=== PATIENT | female | born 1985 | race Caucasian/White ===

== ENCOUNTER 2019-05-24 14:28 | Outpatient (REF) | payer MEDICAID, SELFPAY ==
[2019-05-24 17:22] LABS: *AMPHETAMINES SCREEN URINE Negative (Negative); *BARBITURATES SCREEN URINE Negative (Negative); *BENZODIAZEPINES SCREEN URINE Negative (Negative); Cannabinoids THC Negative (Negative); Cocaine Screen,Urine Negative (Negative); METHADONE URINE SCREEN Negative (Negative); OPIATES URINE SCREEN Negative (Negative); Tricyclic Antidepressants Negative (Negative)
[2019-05-29 02:19] LABS: Buprenorphine Negative; Norbuprenorphine Negative
== END 2019-05-24 14:48 ==
LOC: LBN 14:28
PROVIDERS: Visit Provider Advanced Practice Midwife
DX: Z34.91 Encounter for supervision of normal pregnancy, unspecified, first trimester (principal)
CPT/HCPCS: 80307; 87086

== ENCOUNTER 2019-06-07 13:33 | Outpatient (CLI) | payer MEDICAID, SELFPAY ==
[2019-06-07 14:09] LABS: Kit/Specimen SENT
[2019-06-07 14:53] LABS: TSH (W/Ref FT4) 1.31 uIU/mL (0.358-3.74)
[2019-06-08 15:20] LABS: Varicella IgG Antibody Positive
[2019-06-08 16:46] LABS: Syphilis Total Ab w/Reflex Nonreactive (Nonreactive)
[2019-06-11 12:58] LABS: Specimen WB Whole Blood
== END 2019-06-07 13:53 ==
PROVIDERS: Visit Provider Advanced Practice Midwife
DX: Z34.91 Encounter for supervision of normal pregnancy, unspecified, first trimester (principal); Z36.89 Encounter for other specified antenatal screening
CPT/HCPCS: 36415; 81329; 86787; 81220; 84443; 86780

== ENCOUNTER 2019-06-22 00:25 | Outpatient (CLI) | payer MEDICAID, SELFPAY ==
--- NOTE | 2019-06-22 10:23 | MERGE_ITS ---
*[facility]* *[facility]* [address] [place] [address] Date of study: 06/22/2019 Transthoracic Echocardiography M-mode, complete 2D, complete spectral Doppler, and color Doppler *STUDY CONCLUSIONS* Summary: 1. Left ventricle: The cavity size was normal. Wall thickness was normal. Systolic function was normal. The estimated ejection fraction was 55-60%. Wall motion was normal; there were no regional wall motion abnormalities. 2. Right ventricle: The cavity size was normal. Systolic function was normal. 3. Inferior vena cava: The vessel was patent and normal in size. The respirophasic diameter changes were blunted (less than 50%). *PATIENT PRESENTATION* Height: 157.5cm (62in ) S/D Pressure: 92 / 59 Weight: 57.6kg (126.7lb ) BSA: 1.59m^2 Test start time: 10:30 AM. Test stop time: 11:30 AM. PERFORMING Unknown PERFORMING [facility] [address] BOSS Alejandra Cesar RT (Wilfred)(CT), RDCS CONSULTING Ana Resendiz ORDERING Ana Resendiz REFERRING Ana Resendiz *PROCEDURE DATA* Procedure information: The patient was identified by two identifiers. This study was interpreted by [facility]. Pertinent images and digital data are archived for permanent storage and are available for subsequent review. No prior study was available for comparison. Study status: Routine. Transthoracic echocardiography. M-mode, complete 2D, complete spectral Doppler, and color Doppler. A Transthoracic Echocardiogram was performed. Scanning was performed from the parasternal, apical, subcostal, and suprasternal notch acoustic windows. Images were obtained using an [id number] cardiac ultrasound machine. Image quality was adequate. Study completion: The patient tolerated the procedure well. There were no complications. History: PMH: Heart murmur audible, hx of palpitations z34.90. *CARDIAC ANATOMY* Left ventricle: The cavity size was normal. Wall thickness was normal. Systolic function was normal. The estimated ejection fraction was 55-60%. Wall motion was normal; there were no regional wall motion abnormalities. Diastolic parameters were normal. There was no evidence of elevated ventricular filling pressure by Doppler parameters. Aortic valve: Trileaflet; normal thickness leaflets. Mobility was not restricted. Doppler: Transvalvular velocity was within the normal range. There was no stenosis. There was no significant regurgitation. VTI ratio of LVOT to aortic valve: 0.79. Valve area (VTI): 1.9cm^2. Indexed valve area (VTI): 1.2cm^2/m^2. Peak velocity ratio of LVOT to aortic valve: 0.8. Valve area (Vmax): 1.9cm^2. Indexed valve area (Vmax): 1.2cm^2/m^2. Mean velocity ratio of LVOT to aortic valve: 0.81. Valve area (Vmean): 1.9cm^2. Indexed valve area (Vmean): 1.2cm^2/m^2. Mean gradient (S): 3.7mm Hg. Peak gradient (S): 6.1mm Hg. Aorta: Aortic root: The aortic root was normal in size. Ascending aorta: The ascending aorta was normal in size. Mitral valve: Structurally normal valve. Mobility was not restricted. Doppler: Transvalvular velocity was within the normal range. There was no evidence for stenosis. There was trivial regurgitation. Valve area by pressure half-time: 4.6cm^2. Indexed valve area by pressure half-time: 2.9cm^2/m^2. Peak gradient (D): 3.2mm Hg. Left atrium: The atrium was normal in size. Right ventricle: The cavity size was normal. Systolic function was normal. Pulmonic valve: The pulmonary valve appears to be grossly normal. Doppler: Transvalvular velocity was within the normal range. There was no evidence for stenosis. There was trivial regurgitation. Tricuspid valve: Structurally normal valve. Doppler: Transvalvular velocity was within the normal range. There was no evidence for stenosis. There was mild regurgitation. Pulmonary artery: Poorly visualized. Pulmonary systolic pressure was within the normal range, in the range of 20mm Hg to 25mm Hg. Right atrium: The atrium was normal in size. Pericardium: There was no pericardial effusion. Systemic veins: Inferior vena cava: Well visualized. The vessel was patent and normal in size. The respirophasic diameter changes were blunted (less than 50%). Baseline ECG: Normal sinus rhythm. Measurements Left ventricle Value Reference LV end-diastolic volume, 1-p A2C 70 ml LV ejection fraction, 1-p A2C 60 % LV end-diastolic volume, 1-p A4C 74 ml LV e', lateral 0.211 m/sec LV E/e', lateral 4 LV e', medial 0.158 m/sec LV E/e', medial 6 LV e', average 0.185 m/sec LV E/e', average 5 LVOT Value Reference LVOT ID, A-P 1.7 cm LVOT area 2.3 cm^2 LVOT peak velocity, S 0.99 m/sec LVOT mean velocity, S 0.74 m/sec LVOT VTI, S 22.2 cm LVOT peak gradient, S 3.9 mm Hg LVOT mean gradient, S 2.4 mm Hg Stroke volume (SV), LVOT DP 52 ml Stroke index (SV/bsa), LVOT DP 33 ml/m^2 Aortic valve Value Reference Aortic valve peak velocity, S 1.2 m/sec Aortic valve mean velocity, S 0.9 m/sec Aortic valve VTI, S 28.0 cm Aortic mean gradient, S 3.7 mm Hg Aortic peak gradient, S 6.1 mm Hg VTI ratio, LVOT/AV 0.79 Aortic valve area, VTI 1.9 cm^2 Velocity ratio, peak, LVOT/AV 0.8 Aortic valve area, peak velocity 1.9 cm^2 Velocity ratio, mean, LVOT/AV 0.81 Aortic valve area, mean velocity 1.9 cm^2 Aortic valve area/bsa, mean velocity 1.2 cm^2/m^2 Aorta Value Reference Aortic root ID, ED 2.4 cm Ascending aorta ID, A-P, S 2.3 cm Left atrium Value Reference LA ID, A-P, ES 2.2 cm LA ID/bsa, A-P 1.4 cm/m^2 <=2.2 LA volume/bsa, ES, 1-p A4C 17 ml/m^2 LA volume, ES, 2-p 26 ml LA volume/bsa, ES, 2-p 17 ml/m^2 LA/aortic root ratio 0.94 Mitral valve Value Reference Mitral E-wave peak velocity 0.9 m/sec Mitral A-wave peak velocity 0.39 m/sec Mitral deceleration time 166 ms 150 - 230 Mitral pressure half-time 48 ms Mitral peak gradient, D 3.2 mm Hg Mitral E/A ratio, peak 2.33 Mitral valve area, PHT, DP 4.6 cm^2 Pulmonary veins Value Reference Pulmonary vein peak velocity, S 0.4 m/sec Pulmonary vein peak velocity, D 0.65 m/sec Pulmonary vein velocity ratio, peak, 0.6 S/D Pulmonary vein A-wave reversal peak 0.22 m/sec velocity Tricuspid valve Value Reference Tricuspid regurg peak velocity 2.4 m/sec Tricuspid peak RV-RA gradient 22.3 mm Hg Right atrium Value Reference RA area, ES, A4C 12.1 cm^2 8.3 - 19.5 Pulmonic valve Value Reference Pulmonic regurg velocity, ED 0.64 m/sec Legend: (L) and (H) orion values outside specified reference range. I have personally reviewed the images and have reviewed and edited the reported findings. Electronically signed by Azeem Navarrete 06/22/2019 12:44
== END 2019-06-22 00:45 ==
PROVIDERS: PCP Family Medicine; Visit Provider Advanced Practice Midwife
DX: R01.1 Cardiac murmur, unspecified (principal); R00.2 Palpitations; Z3A.13 13 weeks gestation of pregnancy
CPT/HCPCS: 93306

== ENCOUNTER 2019-07-24 01:11 | Outpatient (CLI) | payer MEDICAID, SELFPAY ==
--- NOTE | 2019-07-24 13:52 | DI.US_ITS ---
SYMPTOM/DIAGNOSIS: Z34.90 OB ULTRASOUND: The fetus is in variable position during the exam. The placenta is anterior. The biometric measurements correspond to 18 weeks 6 days and an EDC 19 December 2019. The amniotic fluid is visually normal. No abnormalities are identified. IMPRESSION: survey is within normal limits. Predicted Gestational Age: Indication/History: survey 17 +5 Wks Range: 16 +5 to 18 +5 Prior US done on: Determined by: First US LMP History EDC by prior US: 12/27/2019 For multiple gestations: Baby PLACENTA: Grade: 0 Location: XX Anterior PRESENTATION: RT LT LOW LYING PREVIA Cephalic Trans (Head RT LT ) Varied XX Breech BIOMETRY: Anatomy Identified: BPD: 42 mm 18 +6 wks 4 chamber Heart XX Heart Rate 143 BPM HC: 159 mm 18 +5 wks LVOT XX Post Fossa XX AC: 132 mm 18 +5 wks RVOT XX Ventricles XX FL: 29 mm 18 +6 wks Stomach XX Nose XX Bladder XX Lips XX Cisterna Magna: 3.2 mm 82 CI: Kidneys XX Palate XX Cerebellum: 1.85 cm 3 vessel cord XX Spine XX EFW: 256 grms 96 % Cord Insertion XX NS= not seen Composite Age (US) 18 +6 wks Many abnormalities cannot be diagnosed. A normal exam does not exclude congenital abnormality. EDC by US 12/19/2019 Amniotic Fluid Index: Normal COMMENTS: RUQ: LUQ: RLQ: LLQ: Total: cm Biophysical Profile: Score 0/2 HERMELINDO (>2cm) Respirations (>30 sec) Body flexion/extension Extremity flexion/extension TOTAL SCORE
== END 2019-07-24 01:31 ==
PROVIDERS: PCP Family Medicine; Visit Provider Advanced Practice Midwife
DX: Z34.92 Encounter for supervision of normal pregnancy, unspecified, second trimester (principal)
CPT/HCPCS: 76805

== ENCOUNTER 2019-08-16 10:51 | Outpatient (CLI) | payer MEDICAID, SELFPAY ==
[2019-08-16 12:55] LABS: HCT 37.7 % (36.0-46.0); HGB 12.6 g/dL (12.0-15.5); Mean Corp. HGB Concentration 33.4 g/dL (32.0-36.0); Mean Corpuscular Hemoglobin 31.6 pg (27.0-33.0); Mean Corpuscular Volume 94.5 fL (80-95); Mean Platelet Volume 10.5 fL (8.0-11.0); Platelet Count 260 x1000/uL (130-400); RBC 3.99 m/cumm (4.00-5.20); RBC Distribution Width 14.1 % (11.7-14.6); White Blood Cell Count 10.14 k/cumm (4.4-10.8)
== END 2019-08-16 11:11 ==
PROVIDERS: PCP Family Medicine; Visit Provider Advanced Practice Midwife
DX: Z34.92 Encounter for supervision of normal pregnancy, unspecified, second trimester (principal)
CPT/HCPCS: 36415; 85027; 86850; 86900; 86901; 87491; 87591

== ENCOUNTER 2019-09-05 19:49 | Observation (INO) | payer MEDICAID, SELFPAY ==
[2019-09-05 21:45] LABS: Bilirubin Negative (Negative); Blood Negative (Negative); Clarity Clear (Clear); Glucose Negative (Negative); Ketones Negative (Negative); Leukocyte Esterase Trace (Negative); Nitrite Negative (Negative); Urobilinogen 0.2 EU/dL (Up TO 0.2)
[2019-09-05 22:01] LABS: C & S Indicated? C&S Done As Ordered
[2019-09-05 22:16] LABS: Bacteria Few HPF (Negative); Casts Negative LPF (Negative); Crystals Negative HPF (Negative); Epithelial Cells Moderate HPF (Negative); Mucus Negative (Negative); RBC Negative (0-2); WBC Negative HPF (0-5)
== END 2019-09-05 22:45 | disposition home or self-care (01) ==
PROVIDERS: Admitting Provider Advanced Practice Midwife; PCP Family Medicine; Visit Provider Advanced Practice Midwife
DX: O60.02 Preterm labor without delivery, second trimester (principal); Z3A.23 23 weeks gestation of pregnancy
CPT/HCPCS: 81003; 81015; 87086; G0378

== ENCOUNTER 2019-09-06 12:42 | Outpatient (CLI) | payer MEDICAID, SELFPAY ==
--- NOTE | 2019-09-06 12:51 | DI.US_ITS ---
EXAM: US OB CERVICAL LENGTH CLINICAL HISTORY: contractions, Z34.90. TECHNIQUE: Limited examination was performed. COMPARISON: US OB 2-3 trimester from 07/24/2019 FINDINGS: Cephalic gonzalez is demonstrated. The placenta is anterior and grade 1. Cervical length is 5 cm. cardiac rate is 169 beats per minute.
== END 2019-09-06 13:02 ==
PROVIDERS: PCP Family Medicine; Visit Provider Advanced Practice Midwife
DX: Z34.92 Encounter for supervision of normal pregnancy, unspecified, second trimester (principal)
CPT/HCPCS: 76815; 82731; 87086

== ENCOUNTER 2019-09-06 16:56 | Outpatient (REF) | payer MEDICAID, SELFPAY ==
[2019-09-06 17:10] LABS: Fetal Fibronectin Negative (Negative)
== END 2019-09-06 17:16 ==
LOC: LBN 16:56
PROVIDERS: PCP Family Medicine; Visit Provider Advanced Practice Midwife
DX: R10.9 Unspecified abdominal pain (principal)
CPT/HCPCS: 82731; 87086

== ENCOUNTER 2019-09-10 21:30 | Observation (INO) | payer MEDICAID, SELFPAY ==
[2019-09-10 23:56] LABS: Bilirubin Negative (Negative); Blood Trace-intact (Negative); Clarity Clear (Clear); Glucose Negative (Negative); Ketones Negative (Negative); Leukocyte Esterase Negative (Negative); Nitrite Negative (Negative); Specific Gravity 1.015 (1.005-1.025); Urobilinogen 0.2 EU/dL (Up TO 0.2)
[2019-09-10 23:59] LABS: WBC Negative HPF (0-5)
[2019-09-11] LABS: Bacteria Rare HPF (Negative); C & S Indicated? No; Casts Negative LPF (Negative); Crystals Negative HPF (Negative); Epithelial Cells Few HPF (Negative); Mucus Negative (Negative)
== END 2019-09-11 00:30 | disposition home or self-care (01) ==
PROVIDERS: Admitting Provider Advanced Practice Midwife; PCP Family Medicine; Visit Provider Advanced Practice Midwife
DX: O26.892 Other specified pregnancy related conditions, second trimester (principal); R10.11 Right upper quadrant pain; O60.02 Preterm labor without delivery, second trimester; R10.12 Left upper quadrant pain; Z3A.24 24 weeks gestation of pregnancy
CPT/HCPCS: 81003; 81015; 87086; 87480; 87510; 87660; G0378

== ENCOUNTER 2019-09-11 01:26 | Observation (INO) | payer MEDICAID, SELFPAY ==
[2019-09-11] MEDS: hydrOXYzine PAMOATE 25 MG CAP PO (02:44)
[2019-09-11 02:45] LABS: *AMPHETAMINES SCREEN URINE Negative (Negative); *BARBITURATES SCREEN URINE Negative (Negative); *BENZODIAZEPINES SCREEN URINE Negative (Negative); Cannabinoids THC Negative (Negative); Cocaine Screen,Urine Negative (Negative); METHADONE URINE SCREEN Negative (Negative); OPIATES URINE SCREEN Negative (Negative)
[2019-09-11 02:47] LABS: Tricyclic Antidepressants Negative (Negative)
[2019-09-11 03:34] LABS: HCT 32.1 % (36.0-46.0); HGB 10.8 g/dL (12.0-15.5); Mean Corp. HGB Concentration 33.6 g/dL (32.0-36.0); Mean Corpuscular Hemoglobin 31.6 pg (27.0-33.0); Mean Corpuscular Volume 93.9 fL (80-95); Mean Platelet Volume 9.7 fL (8.0-11.0); Platelet Count 226 x1000/uL (130-400); RBC 3.42 m/cumm (4.00-5.20); RBC Distribution Width 13.4 % (11.7-14.6)
[2019-09-11 03:43] LABS: White Blood Cell Count 9.39 k/cumm (4.4-10.8)
[2019-09-11 04:38] LABS: ALT 20 U/L (14-59); AST 17 U/L (15-37); Albumin 2.4 g/dL (3.4-5.0); Alkaline Phosphatase 56 U/L (46-116); Anion Gap 9.6 mmol/L (3-11); BUN 7 mg/dL (7-18); Bilirubin, Total 0.2 mg/dL (0.2-1.0); CO2 24.4 mmol/L (21.0-32.0); CREATININE 0.58 mg/dL (0.55-1.02); Chloride 104 mmol/L (98-107); Glucose 99 mg/dL (70-100); Potassium 3.3 mmol/L (3.5-5.1); Sodium 138 mmol/L (136-145); Total Protein 5.6 g/dL (6.4-8.2)
[2019-09-11 05:04] LABS: Calcium 7.8 mg/dL (8.5-10.1)
--- NOTE | 2019-09-11 09:00 | DI.US_ITS ---
EXAM: US ABDOMEN RENAL CLINICAL HISTORY: abdominal pain, hematuria. TECHNIQUE: Ultrasound performed using standard protocol. COMPARISON: US OB CERVICAL LENGTH from 09/06/2019 FINDINGS: Abdominal and renal ultrasound was performed. Liver is unremarkable in appearance. No evidence of c holelithiasis or biliary dilatation. Pancreas is unremarkable as visualized. Spleen appears normal. Abdominal aorta and IVC are of normal diameter. Kidneys are normal in size and shape. No nephrolithiasis identified. There appears to be mild to mo derate bilateral hydronephrosis. Urinary bladder grossly unremarkable, left ureteral jet seen, right ureteral jet not identified. IMPRESSION: Mild to moderate bilateral hydronephrosis, etiology uncertain. Correlation with abdominal and pelvic CT recommended.
[2019-09-15 15:22] LABS: Buprenorphine Negative; Norbuprenorphine Negative
== END 2019-09-11 15:40 | disposition home or self-care (01) ==
PROVIDERS: Admitting Provider Advanced Practice Midwife; PCP Family Medicine; Visit Provider Advanced Practice Midwife
DX: O60.02 Preterm labor without delivery, second trimester (principal); Z3A.24 24 weeks gestation of pregnancy; O26.892 Other specified pregnancy related conditions, second trimester; R10.11 Right upper quadrant pain; R10.12 Left upper quadrant pain; R31.0 Gross hematuria
CPT/HCPCS: 36415; 76770; 80053; 80307; 85027; 59025; 76700; G0378

== ENCOUNTER 2019-10-02 08:36 | Outpatient (CLI) | payer MEDICAID, SELFPAY ==
[2019-10-02 10:41] LABS: Glucose,1 Hr (Glucola) 128 mg/dL (80-140)
== END 2019-10-02 08:56 ==
PROVIDERS: PCP Family Medicine; Visit Provider Advanced Practice Midwife
DX: Z34.93 Encounter for supervision of normal pregnancy, unspecified, third trimester (principal)
CPT/HCPCS: 36415; 82950

== ENCOUNTER 2019-10-04 19:57 | Observation (INO) | payer MEDICAID, SELFPAY | END 2019-10-04 22:14 | disposition home or self-care (01) | LOC: OBS 10-05 15:07 | PROVIDERS: Admitting Provider Advanced Practice Midwife; PCP Family Medicine; Visit Provider Advanced Practice Midwife | DX: O60.03 Preterm labor without delivery, third trimester (principal); Z3A.28 28 weeks gestation of pregnancy; O98.813 Other maternal infectious and parasitic diseases complicating pregnancy, third trimester; B37.3 Candidiasis of vulva and vagina | CPT/HCPCS: 59025 ==

== ENCOUNTER 2019-10-15 18:01 | Outpatient (CLI) | payer MEDICAID, SELFPAY | END 2019-10-15 18:21 | PROVIDERS: PCP Family Medicine; Visit Provider Advanced Practice Midwife | DX: O36.8130 Decreased fetal movements, third trimester, not applicable or unspecified (principal); Z3A.29 29 weeks gestation of pregnancy | CPT/HCPCS: 59025 ==

== ENCOUNTER 2019-10-30 11:32 | Outpatient (CLI) | payer MEDICAID, SELFPAY | END 2019-10-30 11:52 | PROVIDERS: PCP Family Medicine; Visit Provider Advanced Practice Midwife | DX: O60.03 Preterm labor without delivery, third trimester (principal); Z3A.31 31 weeks gestation of pregnancy | CPT/HCPCS: 59025; 82731; 87480; 87510; 87660 ==

== ENCOUNTER 2019-11-13 14:26 | Outpatient (REF) | payer MEDICAID, SELFPAY | END 2019-11-13 14:46 | LOC: LBN 14:26 | PROVIDERS: PCP Family Medicine; Visit Provider Advanced Practice Midwife | DX: N89.8 Other specified noninflammatory disorders of vagina (principal) | CPT/HCPCS: 87480; 87510; 87660 ==

== ENCOUNTER 2019-11-20 00:47 | Outpatient (CLI) | payer MEDICAID, SELFPAY ==
--- NOTE | 2019-11-20 10:44 | DI.US_ITS ---
EXAM: US OB HERMELINDO WEIGHT CLINICAL HISTORY: S<D at 33 wks O26.843 TECHNIQUE: Ultrasound performed using standard protocol. COMPARISON: US ABDOMEN RENAL from 09/11/2019 FINDINGS: There is a single intrauterine gestation. The fetus is in the cephalic presentation. heart ra te is 139 beats per minute. Estimated weight is 2511 grams. This is a 47th percentile Amniotic fluid index is 7.6 centimeters. Visually the amniotic fluid appears within normal limits. The placenta is anterior without evidence of previa. IMPRESSION: Single living intrauterine gestation. Estimated sonographic age is 35 weeks.
== END 2019-11-20 01:07 ==
PROVIDERS: PCP Family Medicine; Visit Provider Advanced Practice Midwife
DX: O26.843 Uterine size-date discrepancy, third trimester (principal); Z3A.35 35 weeks gestation of pregnancy
CPT/HCPCS: 76816

== ENCOUNTER 2019-11-26 18:56 | Observation (INO) | payer MEDICAID, SELFPAY ==
[2019-10-30 14:12] LABS: Fetal Fibronectin Negative (Negative)
[2019-11-26] MEDS: NIFEdipine 10 MG CAP PO ×2 (21:36→23:06)
[2019-11-26] MEDS: oxyCODONE 5 mg/Acetaminophen 325 mg TAB 1 TAB PO (23:56)
[2019-11-27] MEDS: NIFEdipine 10 MG CAP 20 MG PO ×2 (04:17→11:03)
[2019-11-27] MEDS: Betamet Acet/Betamet Na Ph Inj. 30 MG/5 ML 12 MG IM (07:06)
[2019-11-28] MEDS: Calcium Carbonate *TUMS* 500 MG CHEW 1000 MG PO (05:20)
[2019-11-28] MEDS: Betamet Acet/Betamet Na Ph Inj. 30 MG/5 ML 12 MG IM (09:31)
== END 2019-11-28 10:45 | disposition home or self-care (01) ==
PROVIDERS: Admitting Provider Advanced Practice Midwife; PCP Family Medicine; Visit Provider Advanced Practice Midwife
DX: O99.343 Other mental disorders complicating pregnancy, third trimester (principal); O60.03 Preterm labor without delivery, third trimester; F41.9 Anxiety disorder, unspecified; Z3A.35 35 weeks gestation of pregnancy; Z36.85 Encounter for antenatal screening for Streptococcus B; O99.89 Other specified diseases and conditions complicating pregnancy, childbirth and the puerperium; M54.9 Dorsalgia, unspecified; R12 Heartburn
CPT/HCPCS: 96372; 59025; 82731; 87081; 87480; 87510; 87660; G0378; J0702

== ENCOUNTER 2019-12-01 07:13 | Outpatient (CLI) | payer MEDICAID, SELFPAY | END 2019-12-01 07:33 | PROVIDERS: PCP Family Medicine; Visit Provider Advanced Practice Midwife | DX: O26.843 Uterine size-date discrepancy, third trimester (principal); Z3A.36 36 weeks gestation of pregnancy | CPT/HCPCS: 59025 ==

== ENCOUNTER 2019-12-02 21:06 | Observation (INO) | payer MEDICAID, SELFPAY | END 2019-12-03 01:45 | disposition home or self-care (01) | LOC: OBS 12-04 12:00 | PROVIDERS: Admitting Provider Advanced Practice Midwife; PCP Family Medicine; Visit Provider Advanced Practice Midwife | DX: O47.03 False labor before 37 completed weeks of gestation, third trimester (principal); Z3A.36 36 weeks gestation of pregnancy | CPT/HCPCS: G0378 ==

== ENCOUNTER 2019-12-04 12:40 | Outpatient (REF) | payer MEDICAID, SELFPAY ==
[2019-12-05 16:14] LABS: *AMPHETAMINES SCREEN URINE Negative (Negative); *BARBITURATES SCREEN URINE Negative (Negative); *BENZODIAZEPINES SCREEN URINE Negative (Negative); Cannabinoids THC Negative (Negative); Cocaine Screen,Urine Negative (Negative); METHADONE URINE SCREEN Negative (Negative); OPIATES URINE SCREEN Negative (Negative)
[2019-12-05 16:22] LABS: Tricyclic Antidepressants Negative (Negative)
[2019-12-07 12:03] LABS: Buprenorphine Negative; Norbuprenorphine Negative
== END 2019-12-04 13:00 ==
LOC: LBN 12:40
PROVIDERS: PCP Family Medicine; Visit Provider Advanced Practice Midwife
DX: Z34.93 Encounter for supervision of normal pregnancy, unspecified, third trimester (principal)
CPT/HCPCS: 80307

== ENCOUNTER 2019-12-06 21:25 | Observation (INO) | payer MEDICAID, SELFPAY | END 2019-12-07 00:59 | disposition home or self-care (01) | PROVIDERS: Admitting Provider Advanced Practice Midwife; PCP Family Medicine; Visit Provider Advanced Practice Midwife | DX: O47.1 False labor at or after 37 completed weeks of gestation (principal); Z3A.37 37 weeks gestation of pregnancy | CPT/HCPCS: G0378 ==

== ENCOUNTER 2019-12-09 20:39 | Observation (INO) | payer MEDICAID, SELFPAY ==
[2019-12-10 00:24] LABS: *AMPHETAMINES SCREEN URINE Negative (Negative); *BARBITURATES SCREEN URINE Negative (Negative); *BENZODIAZEPINES SCREEN URINE Negative (Negative); Cannabinoids THC Negative (Negative); Cocaine Screen,Urine Negative (Negative); METHADONE URINE SCREEN Negative (Negative); OPIATES URINE SCREEN Negative (Negative)
[2019-12-10 00:25] LABS: Tricyclic Antidepressants Negative (Negative)
--- NOTE | 2019-12-10 09:11 | W.PM.PROGNOT ---
Date of Service Date of service: 12/10/19 Time of Service: 09:11 Assessment and Plan Assessment and plan (1) Non-stress test reactive on surveillance: Status: Acute Assessment and plan: Normal NST and BPP today. From my perspective she may be discharged home. Continue routine care. Subjective Subjective Interval history since last seen: I was asked to evaluate this patient for decreased movement and low HERMELINDO on prior ultrasound 1-2 weeks prior. She reports uncomfortable irregular contractions and was monitored overnight displaying no cervical change. She did have a single deceleration on the tracing last evening but the tracing is reactive today with no decelerations. I did perform an ultrasound which demonstrated an HERMELINDO of 13.1 and BPP of 10/10 including her NST this morning. Objective Objective Clinical Data: Laboratory Results Urine Opiates Screen Negative (Negative) 12/08/19 23:45 Urine Methadone Screen Negative (Negative) 12/08/19 23:45 Ur Barbiturates Screen Negative (Negative) 12/08/19 23:45 Ur Tricyclics Screen Negative (Negative) 12/08/19 23:45 Ur Amphetamines Screen Negative (Negative) 12/08/19 23:45 U Benzodiazepines Scrn Negative (Negative) 12/08/19 23:45 Urine Cocaine Screen Negative (Negative) 12/08/19 23:45 Ur THC Screen Negative (Negative) 12/08/19 23:45
== END 2019-12-10 09:30 | disposition home or self-care (01) ==
PROVIDERS: Admitting Provider Advanced Practice Midwife; PCP Family Medicine; Visit Provider Advanced Practice Midwife
DX: O47.1 False labor at or after 37 completed weeks of gestation (principal); Z3A.37 37 weeks gestation of pregnancy
CPT/HCPCS: 80307; 99233

== ENCOUNTER 2019-12-11 16:14 | Outpatient (REF) | payer MEDICAID, SELFPAY | END 2019-12-11 16:34 | LOC: LBN 16:14 | PROVIDERS: PCP Family Medicine; Visit Provider Advanced Practice Midwife | DX: Z34.93 Encounter for supervision of normal pregnancy, unspecified, third trimester (principal) | CPT/HCPCS: 87086 ==

== ENCOUNTER 2019-12-15 04:50 | Observation (INO) | payer MEDICAID, SELFPAY | END 2019-12-15 11:55 | disposition home or self-care (01) | PROVIDERS: Admitting Provider Advanced Practice Midwife; PCP Family Medicine; Visit Provider Advanced Practice Midwife | DX: O47.1 False labor at or after 37 completed weeks of gestation (principal); Z3A.38 38 weeks gestation of pregnancy | CPT/HCPCS: G0378 ==

== ENCOUNTER 2019-12-17 10:57 | Inpatient (IN) | payer MEDICAID, SELFPAY ==
[2019-12-17 16:24] LABS: HCT 38.5 % (36.0-46.0); HGB 12.8 g/dL (12.0-15.5); Mean Corp. HGB Concentration 33.2 g/dL (32.0-36.0); Mean Corpuscular Hemoglobin 30.5 pg (27.0-33.0); Mean Corpuscular Volume 91.9 fL (80-95); Mean Platelet Volume 9.8 fL (8.0-11.0); Platelet Count 244 x1000/uL (130-400); RBC 4.19 m/cumm (4.00-5.20); RBC Distribution Width 14.1 % (11.7-14.6)
[2019-12-17] MEDS: Normal Saline Flush 10 ML SYR IVP (17:51)
[2019-12-17] MEDS: Lactated Ringers 1,000 ML 125 ML IV ×2 (17:52→19:29)
[2019-12-17] MEDS: FentaNYL/ROPIvacaine 2 mcg/ml and 0.1% 200 ML CADD Cassette EP (18:35)
[2019-12-18] MEDS: Acetaminophen 325 MG TAB 650 MG PO ×3 (05:22→19:47)
[2019-12-18] MEDS: Ibuprofen 600 MG TAB PO ×3 (05:22→20:25)
[2019-12-18 07:19] LABS: HCT 35.1 % (36.0-46.0); HGB 11.4 g/dL (12.0-15.5); Mean Corp. HGB Concentration 32.5 g/dL (32.0-36.0); Mean Corpuscular Hemoglobin 30.1 pg (27.0-33.0); Mean Corpuscular Volume 92.6 fL (80-95); Mean Platelet Volume 9.9 fL (8.0-11.0); Platelet Count 208 x1000/uL (130-400); RBC 3.79 m/cumm (4.00-5.20); White Blood Cell Count 16.27 k/cumm (4.4-10.8)
[2019-12-19] MEDS: Acetaminophen 325 MG TAB 650 MG PO ×2 (01:15→07:01)
[2019-12-19] MEDS: Ibuprofen 600 MG TAB PO (03:15)
== END 2019-12-19 11:30 | disposition home or self-care (01) | DRG 807 ==
PROVIDERS: Admitting Provider Advanced Practice Midwife; PCP Family Medicine; Visit Provider Advanced Practice Midwife
DX: O76 Abnormality in fetal heart rate and rhythm complicating labor and delivery (principal); Z37.0 Single live birth; O99.344 Other mental disorders complicating childbirth; Z3A.38 38 weeks gestation of pregnancy; Z67.30 Type AB blood, Rh positive; Z30.013 Encounter for initial prescription of injectable contraceptive; Z62.810 Personal history of physical and sexual abuse in childhood; Z87.51 Personal history of pre-term labor; F41.8 Other specified anxiety disorders; F90.9 Attention-deficit hyperactivity disorder, unspecified type
CPT/HCPCS: 36415; 85027; 86850; 86900; 86901; G0378; J1050

== ENCOUNTER 2020-03-13 01:06 | Outpatient (CLI) | payer MEDICAID, SELFPAY ==
--- NOTE | 2020-03-13 07:00 | DI.US_ITS ---
EXAM: US PELVIS TRANSVAGINAL CLINICAL HISTORY: PERSISTENT VAGINAL BLEEDING AFTER FULL-TERM DELIVERY, DYSFUNCTIONAL UTERINE BLEEDI NG, N93.8. TECHNIQUE: Transabdominal and transvaginal pelvic ultrasound was performed using standard protocol. COMPARISON: US OB HERMELINDO WEIGHT from 11/20/2019 FINDINGS: KIDNEYS: Kidneys are symmetric in size. No evidence of renal calculi. No evidence of hydronephrosis. No renal mass or cyst identified. UTERUS: Position: Anteverted. Size: 8.9 x 4.3 x 6.9 cm Endometrium: 0.4 cm. Normal for patient's menstrual status. There are a few echogenic foci within the endometrium. No mass or abnormal blood flow is seen. Myometrium: Unremarkable. Cervix: Unremarkable. Cervical nabothian cyst is present. OVARIES: Right: 3.1 x 1 x 1.3 cm Cyst or mass: Small follicular cysts are present. No suspicious ovarian mass. Left: 0.8 x 1.5 x 1.3 cm Cyst or mass: Small follicular cysts are present. No suspicious ovarian mass. DOPPLER: Color: Symmetric and uniform flow to both ovaries. No hyperemia. Duplex: Normal ovarian arterial waveforms visualized. CUL-DE-SAC: Free fluid: None. Other: None. IMPRESSION: 1. Normal sonographic appearance of the kidneys. 2. Normal-appearing uterus with endometrial stripe within normal limits. No evidence of an endometri al mass or abnormal blood flow. 3. Unremarkable bilateral ovaries. DATA REPOSITORY:
== END 2020-03-13 01:26 ==
PROVIDERS: PCP Family Medicine; Visit Provider Advanced Practice Midwife
DX: N93.8 Other specified abnormal uterine and vaginal bleeding (principal); N85.4 Malposition of uterus; N83.01 Follicular cyst of right ovary; N83.02 Follicular cyst of left ovary
CPT/HCPCS: 76830; 76856

== ENCOUNTER 2020-04-18 14:37 | Outpatient (REF) | payer MEDICAID, SELFPAY | END 2020-04-18 14:57 | LOC: LBN 14:37 | PROVIDERS: PCP Family Medicine; Visit Provider Obstetrics & Gynecology | DX: R30.0 Dysuria (principal) | CPT/HCPCS: 87086 ==

== ENCOUNTER 2021-02-21 17:24 | Outpatient (REF) | payer MEDICAID, SELFPAY ==
--- NOTE | 2021-02-21 14:10 | PAPFT_PTH ---
PATIENT: Karoline Aggarwal LOC: [facility]#:[id number] AGE/SX: 35/F ROOM: RE02/21/[address]: PABLO Stephenson : 1985 BED: DIS: 02/21/2021 SPEC #: [id number] RECD: 02/21/21 17:32 STATUS: VALENTÍN REQ #: [id number] MIKI: 02/21/21 14:[address]: Angelika Portillo DEPT: [facility] Cytology RECD BY: Baylee Morrison ENTERED: 02/21/21 17:33 SP TYPE: PAPFT OTHR DR: Andriy Menendez Tissues: 1 - CX/ENDOCX FOR PAP SMEARS Procedures: PAP THIN PREP/UVM Screening HPV DNA PROBE Comments: [id number]
== END 2021-02-21 17:25 | disposition home or self-care (01) ==
LOC: NCHCN 17:24
PROVIDERS: PCP Family Medicine; Visit Provider Nurse Practitioner Family
DX: Z12.4 Encounter for screening for malignant neoplasm of cervix (principal); Z11.51 Encounter for screening for human papillomavirus (HPV)
CPT/HCPCS: 88142; 87624

== ENCOUNTER 2022-06-19 02:07 | Outpatient (CLI) | payer MEDICAID, SELFPAY | END 2022-06-19 02:08 | disposition home or self-care (01) | LOC: LBO 02:08 | PROVIDERS: PCP Family Medicine; Visit Provider Obstetrics & Gynecology ==

== ENCOUNTER → 2022-07-17 00:26 | Outpatient (CLI) | payer MEDICAID, SELFPAY ==
--- NOTE | 2022-07-17 07:45 | DI.US_ITS ---
Exam(s) US PELVIS TRANSVAGINAL EXAM: US PELVIS TRANSVAGINAL CLINICAL HISTORY: anatomy,dysfunctional uterine bleeding, n93.8 TECHNIQUE: Transabdominal and transvaginal imaging was performed using standard protocol. COMPARISON: US US PELVIS TRANSVAGINAL from 03/13/2020 FINDINGS: KIDNEYS: Kidneys are symmetric in size. No evidence of renal calculi. No evidence of hydronephrosis. No renal mass or cyst identified. UTERUS: Anteverted. 7.2 x 3.7 x 6.3 cm Endometrium: 2 millimeters. Echogenic foci in the endometrium are no longer seen. Myometrium: Unremarkable. No fibroids. Cervix: Stable appearance of nabothian cyst. OVARIES: Right: mass: None. Small follicle Left: mass: None. Small follicle DOPPLER: Color: Symmetric and uniform flow to both ovaries. No hyperemia. Duplex: Normal ovarian arterial waveforms visualized. CUL-DE-SAC: Free fluid: None. IMPRESSION: 1. Normal-appearing uterus with endometrial stripe within normal limits. 2. Unremarkable bilateral ovaries. DATA REPOSITORY:
== END ==
PROVIDERS: PCP Family Medicine; Visit Provider Obstetrics & Gynecology
DX: N93.8 Other specified abnormal uterine and vaginal bleeding (principal)
CPT/HCPCS: 76830; 76856

== ENCOUNTER 2022-07-17 12:39 | Outpatient (CLI) | payer MEDICAID, SELFPAY ==
[2022-07-17 13:48] LABS: TSH (W/Ref FT4) 2.63 uIU/mL (0.36-3.74)
[2022-07-17 22:40] LABS: Prolactin 6.9 ng/mL (See Note)
== END 2022-07-17 12:40 | disposition home or self-care (01) ==
LOC: LBO 12:40
PROVIDERS: PCP Family Medicine; Visit Provider Obstetrics & Gynecology
DX: N92.5 Other specified irregular menstruation (principal); N93.8 Other specified abnormal uterine and vaginal bleeding
CPT/HCPCS: 36415; 84146; 84443

== ENCOUNTER 2022-08-28 10:52 | Outpatient (CLI) | payer MEDICAID, SELFPAY ==
[2022-08-28 12:24] LABS: HCG Quant, Pregnancy 2803 mIU/mL (1-3)
== END 2022-08-28 10:53 | disposition home or self-care (01) ==
LOC: LBO 10:54
PROVIDERS: PCP Family Medicine; Visit Provider Obstetrics & Gynecology
DX: O26.851 Spotting complicating pregnancy, first trimester (principal)
CPT/HCPCS: 36415; 84702

== ENCOUNTER → 2022-10-16 00:50 | Outpatient (CLI) | payer MEDICAID, SELFPAY ==
--- NOTE | 2022-10-16 07:15 | DI.US_ITS ---
Exam(s) US OB 1ST TRIMESTER EXAM: US OB 1ST TRIMESTER CLINICAL HISTORY: vaginal bleeding,o20.9. TECHNIQUE: First trimester obstetrical ultrasound was performed. COMPARISON: US POCUS EXAM from 09/16/2022 FINDINGS: There is an intrauterine gestational sac which contains a yolk sac and viable pole which exhibi ts heart rate of 159 bpm. movement was identified. There appears to be normal amount of amniotic fluid. Cross Anchor-rump length measurement is 56 mm, corresponding to 12 weeks and 1 day gestational age. Yolk sa c not seen There appears to be a small subchorionic hemorrhage measuring approximately 1.9 x 1.9 cm. Maternal ovaries: Both appear unremarkable. Right ovary measures 2.2 x 2 x 1.3 cm Left ovary measures 3.3 x 2 x 3.3 cm. There is no fluid in the cul-de-sac and adnexal regions. IMPRESSION:: Single viable intrauterine gestation which is approximately 12 weeks and 1 day gestatio nal age by crown rump length measurement, implying FER of April 29, 2023. Appears to be a subchorionic hemorrhage measuring 19 x 19 millimeters. There is no free fluid evident in the cul-de-sac. Maternal ovaries appear unremarkable. No extraovarian adnexal masses. DATA REPOSITORY:
== END ==
PROVIDERS: PCP Family Medicine; Visit Provider Advanced Practice Midwife
DX: O20.9 Hemorrhage in early pregnancy, unspecified (principal)
CPT/HCPCS: 76801

== ENCOUNTER 2022-10-19 03:00 | Outpatient (CLI) | payer MEDICAID, SELFPAY ==
[2022-10-19 15:03] LABS: Panorama Kit Sent via Fed Ex
[2022-10-19 15:07] LABS: Abs Immature Grans 0.03 10^3/uL (0.0-0.06); Absolute Eosinophil Count 0.38 10^3/uL (0.0-0.7); Absolute Lymphocyte Count 2.67 10^3/uL (1.2-3.4); Absolute Neutrophil Count 4.97 10^3/uL (1.2-6.7); Basophils % 1.1; Eosinophils % 4.3; HCT 36.3 % (36.0-46.0); HGB 12.4 g/dL (11.2-15.7); Immature Grans % 0.3; Lymphocytes % 30.2; MCH 30.5 pg (27.0-33.0); MCHC 34.2 % (32.0-36.0); MCV 89 fL (80-95); MPV 9.8 fL (8.0-11.0); Monocytes % 7.9; Neutrophils % 56.2; Platelet Count 251 10^3/uL (130-400); RBC 4.07 10^6/uL (3.93-5.22); RDW 12.8 % (11.7-14.6); RDW-SD 42.2 fL; WBC 8.85 10^3/uL (4.4-10.8)
[2022-10-19 16:25] LABS: TSH (W/Ref FT4) 1.21 uIU/mL (0.36-3.74)
[2022-10-20 09:07] LABS: Hepatitis B Surface Ag Negative (Negative)
[2022-10-20 09:34] LABS: HIV-1/2 Ag & Ab Screen Negative (Negative)
[2022-10-20 09:37] LABS: Hepatitis C Ab w Rflx HCV PCR Negative (Negative)
[2022-10-20 10:26] LABS: Varicella IgG Antibody Positive (See Note)
[2022-10-20 10:32] LABS: Rubella IgG Ab (UVM) Negative (See Note)
[2022-10-23 14:37] LABS: Syphilis IgG w/Reflex Nonreactive (Nonreactive)
[2022-11-24 17:20] LABS: Result Summary NEGATIVE; Specimen WB Whole Blood
== END 2022-10-19 03:01 | disposition home or self-care (01) ==
LOC: LBO 03:00
PROVIDERS: Obstetrics & Gynecology; PCP Family Medicine; Visit Provider Advanced Practice Midwife
DX: O09.521 Supervision of elderly multigravida, first trimester (principal); O99.341 Other mental disorders complicating pregnancy, first trimester; F41.8 Other specified anxiety disorders; Z36.89 Encounter for other specified antenatal screening; Z3A.12 12 weeks gestation of pregnancy
CPT/HCPCS: 36415; 81220; 81222; 86787; 86803; 86850; 86900; 86901; 87340; 87389; 84443; 84702; 85025; 86762; 86780

== ENCOUNTER 2022-10-19 16:26 | Outpatient (REF) | payer MEDICAID, SELFPAY ==
[2022-10-19 18:21] LABS: *AMPHETAMINES SCREEN URINE Negative (Negative); *BARBITURATES SCREEN URINE Negative (Negative); *BENZODIAZEPINES SCREEN URINE Negative (Negative); Cannabinoids THC Negative (Negative); Cocaine Screen,Urine Negative (Negative); METHADONE URINE SCREEN Negative (Negative); OPIATES URINE SCREEN Negative (Negative)
[2022-10-19 18:22] LABS: Tricyclic Antidepressants Negative (Negative)
[2022-10-21 14:13] LABS: Chlamydia Result Negative (Negative); GC Result Negative (Negative)
[2022-10-28 10:41] LABS: Buprenorphine Negative ng/mL (Cutoff: 5.0); Norbuprenorphine Negative ng/mL (Cutoff: 2.5)
== END 2022-10-19 16:27 | disposition home or self-care (01) ==
LOC: LBN 16:26
PROVIDERS: PCP Family Medicine; Visit Provider Advanced Practice Midwife
DX: O09.521 Supervision of elderly multigravida, first trimester (principal); N89.8 Other specified noninflammatory disorders of vagina; Z3A.12 12 weeks gestation of pregnancy
CPT/HCPCS: 80307; 80348; 87491; 87591; 87086; 87480; 87510; 87660

== ENCOUNTER 2022-12-04 12:54 | Outpatient (CLI) | payer MEDICAID, SELFPAY ==
[2022-12-08 11:28] LABS: AFP 47.8 ng/mL; Calculated age at EDD 36 years; Cigarette smoking status non-Smoker; GA used in risk estimate Scan estimate; IVF Pregnancy No; Initial or repeat testing Initial testing; Insulin dependent diabetes No; Maternal Weight 150 lbs; Number of Fetuses 1; Physician Phone Number 802-748-7300; Prev Pregnancy w/NTD No; RECOMMENDED FOLLOW UP None.; Results Summary Normal risk
== END 2022-12-04 12:55 | disposition home or self-care (01) ==
LOC: LBO 12:55
PROVIDERS: PCP Family Medicine; Visit Provider Advanced Practice Midwife
DX: Z34.92 Encounter for supervision of normal pregnancy, unspecified, second trimester (principal); Z3A.19 19 weeks gestation of pregnancy; Z36.89 Encounter for other specified antenatal screening
CPT/HCPCS: 36415; 82105

== ENCOUNTER 2022-12-25 00:03 | Outpatient (CLI) | payer MEDICAID, SELFPAY ==
--- NOTE | 2022-12-25 06:30 | DI.US_ITS ---
Exam(s) US OB 2-3 TRIMESTER EXAM: US OB 2-3 TRIMESTER CLINICAL HISTORY: ,Z34.90. TECHNIQUE: Transabdominal obstetrical ultrasound performed. COMPARISON: US US OB 1ST TRIMESTER from 10/16/2022 FINDINGS: Number of fetuses: 1 position: VERTEX heart rate: 135bpm Placental location: There is a grade 1 posterior placenta. No evidence of previa. Amniotic fluid index: Amount of fluid is within normal limits. ANATOMICAL SURVEY: Within normal limits. BIOMETRIC DATA: BPD: 5.2cm, 21weeks 5days HC: 19.16cm, 21weeks 3days AC: 15.77cm, 20weeks 6days FL: 3.68cm, 21weeks 5days Cisterna magna: 5.8mm Cerebellum: 2.3cm EFW: 414.19g, 0.91lb, 14.8% Composite Age: 21weeks 3days FER: 05/04/2023 Heart Rate: 135bpm IMPRESSION: 1. Single live intrauterine gestation as above. 2. Normal anatomic survey. DATA REPOSITORY:
== END 2022-12-25 00:23 ==
LOC: DI 00:03
PROVIDERS: PCP Family Medicine; Visit Provider Advanced Practice Midwife
DX: Z34.92 Encounter for supervision of normal pregnancy, unspecified, second trimester (principal); Z3A.21 21 weeks gestation of pregnancy
CPT/HCPCS: 76805

== ENCOUNTER 2023-02-04 02:57 | Outpatient (CLI) | payer MEDICAID, SELFPAY ==
[2023-02-04 16:09] LABS: Glucose,1 Hr (Glucola) 144 mg/dL (80-140)
[2023-02-04 16:24] LABS: HCT 32.7 % (36.0-46.0); HGB 10.9 g/dL (11.2-15.7); MCH 30.7 pg (27.0-33.0); MCHC 33.3 % (32.0-36.0); MCV 92 fL (80-95); MPV 9.6 fL (8.0-11.0); Platelet Count 299 10^3/uL (130-400); RBC 3.55 10^6/uL (3.93-5.22); RDW-SD 44.2 fL
== END 2023-02-04 02:58 | disposition home or self-care (01) ==
LOC: LBO 02:57
PROVIDERS: Advanced Practice Midwife; PCP Family Medicine; Visit Provider Advanced Practice Midwife
DX: Z34.93 Encounter for supervision of normal pregnancy, unspecified, third trimester (principal); Z3A.28 28 weeks gestation of pregnancy
CPT/HCPCS: 36415; 82950; 85027

== ENCOUNTER 2023-02-13 12:31 | Outpatient (CLI) | payer MEDICAID, SELFPAY ==
[2023-02-14 00:05] VITALS: BP 112/59; PULSE 74; TEMP 208.6; TEMP 98.1
--- NOTE | 2023-02-14 08:15 | W.OBNST ---
Date of service: 02/14/23 Time of Service: 01:00 NST Evaluation Reason for NST Reasons for Nonstress Test: DECREASED MOVEMENT Gestational Age Gestational Age in Weeks and Days: 29 Weeks and 2Days Test and Monitor Explained Test/Monitor Explained: Test Explained, Monitor Explained and Patient Verbalized Understanding Vital Signs Blood Pressure: 112/59 Pulse: 74 Temperature: 208.6 F Urine Results Urine Protein: Negative Urine Ketones: Negative Urine Glucose: Negative Urine Blood: Negative NST Information Date on Monitor: 02/14/23 Time on Monitor: 00:00 Date off Monitor: 02/14/23 Time off Monitor: 00:25 Total Time on Monitor: 25 NST Interventions: PO Hydration Contraction Frequency: 0 NST Evaluation Patient States Movement: Decreased FHR Baseline: 125 Variability: Moderate 6-25 bpm Accelerations: 10x10 Decelerations: None NST Results: Reactive Note N/A NST Note Note: FHT appropriate for EGA, UA neg NST Reviewed and Verified by: Amanda Resendiz
[2023-02-14 08:17] VITALS: BP 112/59; PULSE 74; TEMP 208.6; TEMP 98.1
== END 2023-02-13 12:32 | disposition home or self-care (01) ==
LOC: BCD 07-27 12:31
PROVIDERS: PCP Family Medicine; Visit Provider Advanced Practice Midwife
DX: O36.8131 Decreased fetal movements, third trimester, fetus 1 (principal); Z3A.29 29 weeks gestation of pregnancy
CPT/HCPCS: 59025

== ENCOUNTER 2023-02-19 02:32 | Outpatient (CLI) | payer MEDICAID, SELFPAY ==
[2023-02-19 13:07] LABS: Glucose 1 Hour 141 mg/dL
[2023-02-19 14:45] LABS: Glucose 3 Hour 98 mg/dL
== END 2023-02-19 02:33 | disposition home or self-care (01) ==
PROVIDERS: Advanced Practice Midwife; PCP Family Medicine; Visit Provider Advanced Practice Midwife
DX: Z34.90 Encounter for supervision of normal pregnancy, unspecified, unspecified trimester (principal)
CPT/HCPCS: 36415; 82951

== ENCOUNTER 2023-02-23 15:59 | Outpatient (CLI) | payer MEDICAID, SELFPAY ==
[2023-02-23 21:22] LABS: Fetal Fibronectin Negative (Negative)
== END 2023-02-23 16:00 | disposition home or self-care (01) ==
LOC: BCD 07-28 15:59
PROVIDERS: PCP Family Medicine; Visit Provider Advanced Practice Midwife
DX: O60.03 Preterm labor without delivery, third trimester (principal)
CPT/HCPCS: 59025; 82731

== ENCOUNTER 2023-02-23 20:34 | Outpatient (CLI) | payer MEDICAID, SELFPAY ==
[2023-02-23 20:34] VITALS: BP 101/56; PULSE 83; RESP 18; TEMP 36.7
[2023-02-23 21:07] VITALS: BP 101/56; PULSE 83; TEMP 208.6; TEMP 98.1
--- NOTE | 2023-02-23 21:16 | PDOC.NST_ITS ---
Date of service: 02/23/23 Time of Service: 20:40 NST Evaluation Reason for NST Reasons for Nonstress Test: LABOR Gestational Age Gestational Age in Weeks and Days: 30 Weeks and 4Days Test and Monitor Explained Test/Monitor Explained: Test Explained, Monitor Explained and Patient Verbalized Understanding Vital Signs Blood Pressure: 101/56 Pulse: 83 Temperature: 208.6 F Urine Results Urine Protein: Negative Urine Ketones: Negative Urine Glucose: Negative Urine Blood: Negative NST Information Date on Monitor: 02/23/23 Time on Monitor: 20:26 Date off Monitor: 02/23/23 Time off Monitor: 21:08 Total Time on Monitor: 42 NST Interventions: PO Hydration NST Evaluation Patient States Movement: Present FHR Baseline: 125 Variability: Moderate 6-25 bpm Accelerations: 10x10 Decelerations: None NST Results: Reactive Note N/A NST Note Note: NST is reactive and reassuring. There are occasional 30 second mild contractions . Patient reports she feels pressure like she has to push a little with them sometimes but has not been observed. States she can sleep though this. No bleeding or leaking of fluid. Baby is active. SSE cervix closed and appears thick. No abnormal discharge. FFN and GC CT obtained. Digital VE without lubrication is done, external os is softened but cervix is closed and no more than 40% effaced. Presenting part is not cephalic, likely foot at this time but is ballotable. If FFN is negative will discharge to home to rest and call with any change in condition. OSVALDO NST Reviewed and Verified by: Suma Bhandari
[2023-02-23 21:19] VITALS: BP 101/56; PULSE 83; TEMP 208.6; TEMP 98.1
[2023-02-25 13:39] LABS: Chlamydia Result Negative (Negative); GC Result Negative (Negative)
== END 2023-02-23 20:35 | disposition home or self-care (01) ==
PROVIDERS: PCP Family Medicine; Visit Provider Advanced Practice Midwife
DX: O47.03 False labor before 37 completed weeks of gestation, third trimester (principal); Z3A.30 30 weeks gestation of pregnancy
CPT/HCPCS: 59025; 87491; 87591

== ENCOUNTER 2023-03-05 00:44 | Outpatient (CLI) | payer MEDICAID, SELFPAY ==
--- NOTE | 2023-03-05 08:00 | DI.US_ITS ---
Exam(s) US OB HERMELINDO WEIGHT EXAM: US OB HERMELINDO WEIGHT CLINICAL HISTORY: growth due to COVID in ,u07.1,o98.512. TECHNIQUE: Transabdominal obstetrical ultrasound performed. COMPARISON: US US OB 2-3 TRIMESTER from 12/25/2022 FINDINGS: Number of fetuses: 1 position: BREECH Placental location: FUNDAL No evidence of previa. BIOMETRIC DATA: BPD: 7.79 cm, 31 weeks 2 days HC: 29.2 cm, 32 weeks 1 day AC: 26.68 cm, 30 weeks 6 days FL: 5.82 cm, 30 weeks 3 days EFW: 1651.21 g, 3 lb 10 oz, 11.2 % Composite Age: 31 weeks 1 day FER: 05/06/2023 Heart Rate: 129 bpm Amniotic fluid index: 16.08 cm. Visually, amount of fluid is within normal limits. IMPRESSION: 1. Single live intrauterine gestation as above. 2. Estimated weight is 1651gms. This is the 11th percentile. 3. Amniotic fluid index is 16 cm. Visually within normal limits. DATA REPOSITORY:
== END 2023-03-05 01:04 ==
PROVIDERS: PCP Family Medicine; Visit Provider Advanced Practice Midwife
DX: O98.512 Other viral diseases complicating pregnancy, second trimester (principal); U07.1 COVID-19
CPT/HCPCS: 76816

== ENCOUNTER 2023-03-05 17:30 | Outpatient (REF) | payer MEDICAID, SELFPAY | END 2023-03-05 17:31 | disposition home or self-care (01) | LOC: LBN 17:30 | PROVIDERS: PCP Family Medicine; Visit Provider Advanced Practice Midwife | DX: O09.523 Supervision of elderly multigravida, third trimester (principal); Z3A.32 32 weeks gestation of pregnancy; O47.03 False labor before 37 completed weeks of gestation, third trimester | CPT/HCPCS: 87086 ==

== ENCOUNTER 2023-03-31 01:58 | Outpatient (CLI) | payer MEDICAID, SELFPAY ==
--- NOTE | 2023-03-31 08:15 | DI.US_ITS ---
Exam(s) US OB HERMELINDO WEIGHT EXAM: US OB HERMELINDO WEIGHT CLINICAL HISTORY: BREECH,? PRESENTATION,o32.1XX0. TECHNIQUE: Transabdominal obstetrical ultrasound performed. COMPARISON: US US OB HERMELINDO WEIGHT from 03/05/2023 US POCUS EXAM from 03/18/2023 FINDINGS: Number of fetuses: 1 position: Estevan breech. Placental location: There is a grade 2 fundal placenta. No evidence of previa. BIOMETRIC DATA: BPD: 8.66cm, 35weeks HC: 31.13cm, 34weeks 6days AC: 30 cm, 34 weeks 0 days. FL: 6.6cm, 34weeks EFW: 2,357.99g, 5lb 3.61oz, 13% Composite Age: 34weeks 3days FER: 05/09/2023 Heart Rate: 136 Amniotic fluid index: 11.37cm. Visually, amount of fluid is within normal limits. IMPRESSION: 1. Single live intrauterine gestation as above. 2. Estimated weight is 2358gms. This is the 13th percentile. 3. Amniotic fluid index is 11.4 cm. Visually within normal limits. DATA REPOSITORY:
== END 2023-03-31 02:18 ==
LOC: DI 01:58
PROVIDERS: PCP Family Medicine; Visit Provider Advanced Practice Midwife
DX: O32.1XX0 Maternal care for breech presentation, not applicable or unspecified (principal); Z34.90 Encounter for supervision of normal pregnancy, unspecified, unspecified trimester
CPT/HCPCS: 76816

== ENCOUNTER 2023-04-02 16:15 | Outpatient (REF) | payer MEDICAID, SELFPAY | END 2023-04-02 16:16 | disposition home or self-care (01) | LOC: LBN 16:15 | PROVIDERS: PCP Family Medicine; Visit Provider Obstetrics & Gynecology | DX: Z34.93 Encounter for supervision of normal pregnancy, unspecified, third trimester (principal); Z36.85 Encounter for antenatal screening for Streptococcus B; Z3A.36 36 weeks gestation of pregnancy | CPT/HCPCS: 87081 ==

== ENCOUNTER 2023-04-14 12:08 | Observation (INO) | payer MEDICAID, SELFPAY ==
[2023-04-14 11:30] VITALS: BP 108/66; PULSE 74
[2023-04-14 12:12] VITALS: BP 108/66; PULSE 74; RESP 16; TEMP 36.9
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
[2023-04-14 12:22] VITALS: BMI 31.2
[2023-04-14] MEDS: Terbutaline 1 MG/ML VIAL 0.25 MG SC (12:26)
[2023-04-14] MEDS: Normal Saline Flush 10 ML SYR IVP (12:28)
[2023-04-14 12:30] VITALS: BP 106/68; PULSE 74; RESP 16; TEMP 36.6
[2023-04-14 12:31] LABS: HCT 32.3 % (36.0-46.0); HGB 10.6 g/dL (11.2-15.7); MCH 29.4 pg (27.0-33.0); MCHC 32.8 % (32.0-36.0); MCV 90 fL (80-95); MPV 9.4 fL (8.0-11.0); Platelet Count 271 10^3/uL (130-400); RBC 3.61 10^6/uL (3.93-5.22); RDW 13.8 % (11.7-14.6); WBC 14.94 10^3/uL (4.4-10.8)
[2023-04-14 12:40] VITALS: BP 106/68; PULSE 92
--- NOTE | 2023-04-14 12:54 | PROC.BLANK_ITS ---
Date of service: 04/14/23 Time of Service: 12:54 Version Note Version Note DATE OF PROCEDURE: 04/14/23 PRE-OP DIAGNOSES: Breech POST-OP DIAGNOSES: other (Cephalic) PROCEDURE: External cephalic version SURGEON: Fransisca Montana Assisting Surgeon: Daniela Izquierdo Phlebotomy Program Coordinator: Amanda Resendiz Complications: None Indications: at 37 weeks and 4 days. Breech presentation. Adequate HERMELINDO. Findings: Preprocedure ultrasound confirms fetus in the breech presentation with the vertex in the left upper quadrant. Appropriate amniotic fluid. Procedure Description: After full informed consent was obtained, IV started, laboratory including CBC and type and screen were drawn. Ultrasound performed confirming fetus in the breech presentation with back to the right vertex in the left upper quadrant. Patient received terbutaline 0.25mg subcu x1. With upward elevation of the breech from the lower uterine segment and gentle traction on the vertex pressure in a clockwise fashion, vertex was transitioned from the left upper quadrant to the pelvis. Ultrasound confirmed cephalic presentation. heart rate remained 1 30-1 50 throughout the procedure, and postprocedural. Version Outcome: Confirmed via Ultrasound and Successful Pre/Post Procedure NST Pre-Procedure NST Time on Monitor: 42 Patient States Movement: Present FHR Baseline: 140 Variability: Moderate 6-25 bpm Version Ultrasound Ultrasound Performed Ultrasound Image Saved: Yes Pre-Procedure Ultrasound Placental Location: Anterior and Right side Presentation: Estevan Breech Heart Rate: 140 Post Procedure Ultrasound Placental Location: Anterior and Right side Presentation: Vertex Heart Rate: 140
== END 2023-04-14 14:51 | disposition home or self-care (01) ==
LOC: OBS 12:48 → SUR 15:58
PROVIDERS: Admitting Provider Obstetrics & Gynecology; PCP Family Medicine; Visit Provider Obstetrics & Gynecology
DX: O32.1XX0 Maternal care for breech presentation, not applicable or unspecified (principal); Z3A.37 37 weeks gestation of pregnancy
CPT/HCPCS: 59412; 36415; 85027; 86850; 86900; 86901; 96372

== ENCOUNTER 2023-04-16 14:43 | Outpatient (CLI) | payer MEDICAID, SELFPAY ==
[2023-04-16 14:57] VITALS: BP 107/67; PULSE 96; TEMP 36.6
[2023-04-16 17:58] VITALS: BP 107/67; PULSE 96; TEMP 36.6
--- NOTE | 2023-04-16 17:58 | W.OBNST ---
Date of service: 04/16/23 Time of Service: 16:30 NST Evaluation Reason for NST Reasons for Nonstress Test: DECREASED MOVEMENT Gestational Age Gestational Age in Weeks and Days: 38 Weeks and 0Days Test and Monitor Explained Test/Monitor Explained: Test Explained, Monitor Explained and Patient Verbalized Understanding Vital Signs Blood Pressure: 107/67 Pulse: 96 Temperature: 97.9 F NST Information Date on Monitor: 04/16/23 Time on Monitor: 14:50 Date off Monitor: 04/16/23 Time off Monitor: 15:14 Total Time on Monitor: 24 NST Interventions: None NST Evaluation Patient States Movement: Present FHR Baseline: 130 Variability: Moderate 6-25 bpm Accelerations: 15x15 Decelerations: None NST Results: Reactive Note Ultrasound Done: N/A. NST Note NST Reviewed and Verified by: Amanda Resendiz
== END 2023-04-16 15:25 ==
LOC: BCD 14:43 → OBS 14:53
PROVIDERS: PCP Family Medicine; Visit Provider Advanced Practice Midwife
DX: O36.8131 Decreased fetal movements, third trimester, fetus 1 (principal); Z3A.38 38 weeks gestation of pregnancy
CPT/HCPCS: 59025

== ENCOUNTER 2023-04-28 04:41 | Inpatient (IN) | payer MEDICAID, SELFPAY ==
[2023-04-28] VITALS (11 sets, daily range): BP systolic 97–117; BP diastolic 55–74; PULSE 66–88; RESP 14–18; TEMP 35.7–37.1; O2SAT 97
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
[2023-04-28] MEDS: Oxytocin/Normal Saline 30 UNIT/500 ML BAG 167 UNITS IV (05:23)
--- NOTE | 2023-04-28 05:37 | OBVDS_ITS ---
Date of service: 04/28/23 Time of Service: 05:37 OB Labor/ Delivery Information Baby A Delivery Delivery Method: Spontaneaous Presentation: Cephalic Cephalic Position: Vertex Vertex Position: Left Occipital Anterior Cord Description-Baby A: 3 Vessels, Nuchal Cord (X1 loose, reduced before shoulders delivered) and Clamped/Cut Amniotic Fluid: Clear Estimated Blood Loss: 150 Delivery Outcome: Liveborn Infant Complications: none Transferred: Remains with Mother Note: Karoline and her partner, Edmar arrived at approximately 0435 with complaint of contractions beginning at 0200. She was 5cm on admission and requested epidural which was arranged for but was unable to be obtained as she progressed quickly to 10 and +2 at 0519. Second stage huddle was done quickly as baby was delivered over intact perineum at 0522 after SROM at 0521 for clear fluid. Loose nuchal cord noted and reduced before shoulders delivered. Baby was placed skin to skin. Positive family bonding noted. Pitocin was started per protocol. Placenta delivered via thompson mechanism at 0530, intact. Fundus firmed to U with massage and IV pitocin. Perineum and vagina inspected and found to be intact. Karoline plans to breast feed her daughter, Cecelia. She is planning Mirena IUD at 6 weeks PP for contraception. Expect normal PP course with discharge to home in 24-48 hours. Will give MMR prior to discharge. Weight of baby 7lb 9oz. Providers Nurse Fraud Prevention Analyst: Suma Bhandari Nurse: Nadya Renteria Nurse: Domonique Koch Labor/Delivery Information Number of Babies in Womb: 1 Steroids Given: None Reason Steroids Not Administered: N/A Group Beta Strep: Negative Antibiotics Administered: No Rubella Status: Nonimmune Blood Type: AB+ Varicella Immunity: Immune Maternal Complications: Precipitous Labor(<3hrs) Shoulder Dystocia: No Stages of Labor Onset of Labor Date: 04/28/23 Onset of Labor Time: 02:30 Complete Dilatation Date: 04/28/23 Complete Dilatation Time: 05:19 Labor - Stage 1 Duration: 2 hours and 49 minutes ROM Baby A: 04/28/23 ROM Baby A: 05:21 ROM Total Time- Baby A: [id number] Infant Delivery Date-Baby A: 04/28/23 Infant Delivery Time-Baby A: 05:22 Labor Stage 2 Duration: 3 minutes Placenta Delivery Date-Baby A: 05/31/23 Placenta Delivery Time-Baby A: 05:30 Labor-Stage 3 Duration: 8 minutes Total Length of Labor-Baby A: 2 hours and 52 minutes Placenta Cultured: No Placenta Status: Delivered Baby A Gender: Female Gestational Status: Term (39-41.6 wks) Gestational Age in Weeks/Days: 39 Weeks and 5 Days Score-1 Minute Interval(Baby A) Heart Rate-1 minute: 100 BPM or Greater Respiratory Effort- 1 minute: Spontaneous/Strong Cry Muscle Tone-1 minute: Minimal Flexion/Extension Reflex Response-1 minute: Prompt Response Color-1 minute: Bluish Hands or Feet Total Score-1 minute: 8 Score-5 Minute Interval(Baby A) Heart Rate- 5 minute: 100 BPM or Greater Respiratory Effort-5 minute: Spontaneous/Strong Cry Muscle Tone-5 minute: Active Movement Reflex Response-5 minute: Prompt Response Color-5 minute: Bluish Hands or Feet Total Score- 5 minute: 9
[2023-04-28] MEDS: Ibuprofen 600 MG TAB PO ×2 (06:40→16:43)
[2023-04-28 06:46] LABS: HGB 11.4 g/dL (11.2-15.7); MCH 29.2 pg (27.0-33.0); MCHC 32.6 % (32.0-36.0); MCV 90 fL (80-95); MPV 9.4 fL (8.0-11.0); Platelet Count 298 10^3/uL (130-400); RDW 14.1 % (11.7-14.6); RDW-SD 45.4 fL; WBC 18.81 10^3/uL (4.4-10.8)
[2023-04-28] MEDS: Acetaminophen 325 MG TAB 650 MG PO ×2 (07:19→16:43)
[2023-04-29 02:11] VITALS: BP 114/72; PULSE 69; TEMP 36.6
[2023-04-29 07:30] VITALS: BP 105/70; PULSE 85; RESP 14; TEMP 36.9
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
== END 2023-04-29 14:00 | disposition home or self-care (01) | DRG 806 ==
LOC: BCD 04:45 → OBS 04:56
PROVIDERS: Admitting Provider Advanced Practice Midwife; PCP Family Medicine; Visit Provider Advanced Practice Midwife
DX: O99.344 Other mental disorders complicating childbirth (principal); O99.354 Diseases of the nervous system complicating childbirth; Z37.0 Single live birth; Z3A.39 39 weeks gestation of pregnancy; O62.3 Precipitate labor; F32.A Depression, unspecified; G43.009 Migraine without aura, not intractable, without status migrainosus; F90.9 Attention-deficit hyperactivity disorder, unspecified type; K59.00 Constipation, unspecified; O99.62 Diseases of the digestive system complicating childbirth; O69.81X0 Labor and delivery complicated by cord around neck, without compression, not applicable or unspecified
CPT/HCPCS: 36415; 85027; 86850; 86900; 86901; 59025

== ENCOUNTER 2023-10-01 15:00 | Outpatient (CLI) | payer MEDICAID, SELFPAY ==
[2023-10-01 12:33] LABS: HCG Quant, Pregnancy 15 mIU/mL (1-3)
== END 2023-10-01 15:01 | disposition home or self-care (01) ==
LOC: LBO 15:01
PROVIDERS: PCP Family Medicine; Visit Provider Advanced Practice Midwife
DX: Z32.01 Encounter for pregnancy test, result positive (principal)
CPT/HCPCS: 36415; 84702

== ENCOUNTER 2023-10-04 01:15 | Outpatient (CLI) | payer MEDICAID, SELFPAY ==
[2023-10-04 13:58] LABS: HCG Quant, Pregnancy 3 mIU/mL (1-3)
== END 2023-10-04 01:16 | disposition home or self-care (01) ==
LOC: LBO 01:15
PROVIDERS: PCP Family Medicine; Visit Provider Advanced Practice Midwife
DX: Z32.01 Encounter for pregnancy test, result positive (principal)
CPT/HCPCS: 36415; 84702

== ENCOUNTER 2024-02-04 11:54 | Outpatient (REF) | payer MEDICAID, SELFPAY ==
[2024-02-05 14:22] LABS: Chlamydia Result Negative (Negative); GC Result Negative (Negative)
== END 2024-02-04 11:55 | disposition home or self-care (01) ==
LOC: LBN 11:54
PROVIDERS: PCP Family Medicine; Visit Provider Advanced Practice Midwife
DX: O09.521 Supervision of elderly multigravida, first trimester (principal); Z11.3 Encounter for screening for infections with a predominantly sexual mode of transmission; Z3A.10 10 weeks gestation of pregnancy
CPT/HCPCS: 87491; 87591; 87086

== ENCOUNTER 2024-02-04 12:39 | Outpatient (CLI) | payer MEDICAID, SELFPAY ==
[2024-02-04 11:29] LABS: Panorama Kit Sent via Fed Ex
[2024-02-04 11:39] LABS: Abs Immature Grans 0.03 10^3/uL (0.0-0.06); Absolute Basophil Count 0.06 10^3/uL (0.0-0.2); Absolute Eosinophil Count 0.15 10^3/uL (0.0-0.7); Absolute Lymphocyte Count 2.19 10^3/uL (1.2-3.4); Absolute Monocyte Count 0.73 10^3/uL (0.1-0.8); Absolute Neutrophil Count 4.66 10^3/uL (1.2-6.7); Basophils % 0.8; Eosinophils % 1.9; HCT 38.5 % (36.0-46.0); HGB 13.2 g/dL (11.2-15.7); Immature Grans % 0.4; MCH 30.2 pg (27.0-33.0); MCHC 34.3 % (32.0-36.0); MCV 88 fL (80-95); MPV 9.9 fL (8.0-11.0); Monocytes % 9.3; Neutrophils % 59.6; Platelet Count 295 10^3/uL (130-400); RBC 4.37 10^6/uL (3.93-5.22); RDW 12.9 % (11.7-14.6); WBC 7.82 10^3/uL (4.4-10.8)
[2024-02-05 10:08] LABS: HIV-1/2 Ag & Ab Screen Negative (Negative)
[2024-02-07 09:34] LABS: Varicella IgG Antibody Positive (See Note)
[2024-02-07 09:36] LABS: Rubella IgG Ab (UVM) Negative (See Note)
[2024-02-07 10:36] LABS: Hepatitis B Surface Ag Negative (Negative)
[2024-02-07 11:51] LABS: Hepatitis C Ab w Rflx HCV PCR Negative (Negative)
[2024-02-08 15:50] LABS: Syphilis IgG w/Reflex Nonreactive (Nonreactive)
== END 2024-02-04 12:40 | disposition home or self-care (01) ==
LOC: LBO 12:39
PROVIDERS: PCP Family Medicine; Visit Provider Advanced Practice Midwife
DX: Z34.91 Encounter for supervision of normal pregnancy, unspecified, first trimester (principal); Z3A.01 Less than 8 weeks gestation of pregnancy
CPT/HCPCS: 36415; 86787; 86803; 86850; 86900; 86901; 87340; 87389; 85025; 86762; 86780

== ENCOUNTER 2024-03-03 12:23 | Outpatient (REF) | payer MEDICAID, SELFPAY | END 2024-03-03 12:24 | disposition home or self-care (01) | LOC: LBN 12:23 | PROVIDERS: PCP Family Medicine; Visit Provider Advanced Practice Midwife | DX: N89.8 Other specified noninflammatory disorders of vagina (principal) | CPT/HCPCS: 87480; 87510; 87660 ==

== ENCOUNTER 2024-03-24 20:22 | Emergency (ER) | payer MEDICAID, SELFPAY ==
[2024-03-24 20:26] VITALS: BP 118/68; PULSE 74; RESP 16; TEMP 36.8
[2024-03-24 20:48] VITALS: BP 100/56; PULSE 75; RESP 16; TEMP 36.6; O2SAT 100
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
[2024-03-24 21:22] LABS: Bilirubin Negative (Negative); Blood Negative (Negative); Clarity Clear (Clear); Glucose Negative (Negative); Ketones Negative (Negative); Leukocyte Esterase Negative (Negative); Nitrite Negative (Negative); Urobilinogen 0.2 mg/dL (Up to 0.2); pH 6.5 (5-8)
[2024-03-24 21:48] VITALS: BP 100/68; PULSE 74; RESP 16; TEMP 36.7; O2SAT 100
== END 2024-03-24 21:48 | disposition home or self-care (01) ==
PROVIDERS: Emergency Provider Student in an Organized Health Care Education/Training Program; PCP Family Medicine
DX: O26.852 Spotting complicating pregnancy, second trimester (principal); O26.892 Other specified pregnancy related conditions, second trimester; R10.30 Lower abdominal pain, unspecified; Z3A.17 17 weeks gestation of pregnancy
CPT/HCPCS: 76815; 99283; 81003

== ENCOUNTER → 2024-03-28 04:51 | Outpatient (CLI) | payer MEDICAID, SELFPAY ==
--- NOTE | 2024-03-28 08:15 | DI.US_ITS ---
Exam(s) US OB 2-3 TRIMESTER EXAM: US OB 2-3 TRIMESTER CLINICAL HISTORY: bleeding at 17 weeks,n93.9,Z3A.01. TECHNIQUE: Transabdominal obstetrical ultrasound was performed. COMPARISON: No exams were available for comparison FINDINGS: There is a single viable intrauterine gestation with cardiac activity identified-137 bpm. Amniotic fluid: There is a normal amount of amniotic fluid. Placental location: The placenta is anterior/right, grade 1,with no evidence of placenta previa.Dista nce from the tip of the placenta to the internal cervical os is 3.6 cm. ANATOMY: A 3 vessel umbilical cord is seen. A four-chamber cardiac view was obtained. Right and left ventricular outflow tracts were imaged. There are no obvious abnormalities of the spinal column evident. There is no obvious abnormal ity of the anterior abdominal wall. stomach and urinary bladder are identified and there is no evidence of hydronephrosis. No abnormalities of the upper lip region are identified. There is a 5 mm right-sided choroid p soraya cyst noted in the brain. Dating parameters place this at approximately 18 weeks and 1 day gestational age. BPD measures 18 weeks and 0 days HC measures 18 weeks and 1 day AC measures 18 weeks and 2 days FL measures 17 weeks and 6 days Estimated weight is 222 gm-0 pounds, 8 ounces. Fetus is at the 68th percentile on the Hadlock scale. IMPRESSION:: Single viable intrauterine gestation which is approximately 18 weeks and 1 day gestatio nal age, implying an FER of 08/28/2024. There are no obvious anomalies evident on today's study. However, there does appear to be a cherie itary 5 mm choroid plexus cyst in the brain. This can be restudy in a few weeks. The placenta is anterior fundal with no evidence of placenta previa. There is a normal amount of amniotic fluid. DATA REPOSITORY:
== END ==
PROVIDERS: PCP Family Medicine; Visit Provider Advanced Practice Midwife
DX: N93.9 Abnormal uterine and vaginal bleeding, unspecified (principal); Z3A.01 Less than 8 weeks gestation of pregnancy
CPT/HCPCS: 76805

== ENCOUNTER 2024-06-09 02:04 | Outpatient (CLI) | payer MEDICAID, SELFPAY ==
[2024-06-09 12:16] LABS: Glucose,1 Hr (Glucola) 161 mg/dL (80-140)
[2024-06-09 12:27] LABS: HCT 34.1 % (36.0-46.0); HGB 11.6 g/dL (11.2-15.7); MCH 31.4 pg (27.0-33.0); MCV 92 fL (80-95); MPV 9.8 fL (8.0-11.0); Platelet Count 224 10^3/uL (130-400); RDW 13.5 % (11.7-14.6); RDW-SD 45.7 fL; WBC 9.06 10^3/uL (4.4-10.8)
== END 2024-06-09 02:05 | disposition home or self-care (01) ==
LOC: LBO 02:04
PROVIDERS: PCP Family Medicine; Visit Provider Advanced Practice Midwife
DX: Z34.90 Encounter for supervision of normal pregnancy, unspecified, unspecified trimester (principal)
CPT/HCPCS: 36415; 82950; 85027

== ENCOUNTER 2024-06-16 01:05 | Outpatient (CLI) | payer MEDICAID, SELFPAY ==
[2024-06-16 09:37] LABS: Glucose 1 Hour 163 mg/dL
[2024-06-16 10:51] LABS: Glucose 3 Hour 105 mg/dL
== END 2024-06-16 01:06 | disposition home or self-care (01) ==
LOC: LBO 01:06
PROVIDERS: PCP Family Medicine; Visit Provider Advanced Practice Midwife
DX: R73.09 Other abnormal glucose (principal); Z3A.01 Less than 8 weeks gestation of pregnancy
CPT/HCPCS: 36415; 82951

== ENCOUNTER → 2024-06-30 00:37 | Outpatient (CLI) | payer MEDICAID, SELFPAY ==
--- NOTE | 2024-06-30 07:15 | DI.US_ITS ---
Exam(s) US OB HERMELINDO WEIGHT EXAM: US OB HERMELINDO WEIGHT CLINICAL HISTORY: interval growth, f/up choroid plexus cyst, Z3A.01. TECHNIQUE: Transabdominal obstetrical ultrasound performed. COMPARISON: US POCUS EXAM from 03/24/2024 US US OB 2-3 TRIMESTER from 03/28/2024 FINDINGS:: Number of fetuses: One. position: Vertex. Placental location: Anterior, grade 1-2. no evidence of previa. BIOMETRIC DATA: BPD: 81mm = 32+3 weeks HC: 294mm = 32+3 weeks AC: 281 mm = 32+1 weeks FL: 61 mm = 31+ 6 weeks EFW: 1906 Gms = 71% Composite Age: 32+2 weeks, one week greater than expected based on previous dating. FER: June 21 Heart Rate: 133BPM Amniotic fluid index: 13.7 cm. Amount of fluid is visually within normal limits. There is no evidence of choroid plexus cyst on today's examination. IMPRESSION: size and weight are within the expected range. No evidence of choroid plexus cyst. DATA REPOSITORY:
== END ==
PROVIDERS: PCP Family Medicine; Visit Provider Advanced Practice Midwife
DX: Z3A.01 Less than 8 weeks gestation of pregnancy (principal); O35.03X0 Maternal care for (suspected) central nervous system malformation or damage in fetus, choroid plexus cysts, not applicable or unspecified
CPT/HCPCS: 76816

== ENCOUNTER 2024-07-16 21:04 | Outpatient (CLI) | payer MEDICAID, SELFPAY ==
--- NOTE | 2024-07-16 21:34 | W.OBNST ---
Date of service: 07/16/24 Time of Service: 21:34 NST Evaluation Reason for NST Reasons for Nonstress Test: FALSE LABOR Gestational Age Gestational Age in Weeks and Days: 33 Weeks and 3Days Test and Monitor Explained Test/Monitor Explained: Test Explained, Monitor Explained and Patient Verbalized Understanding Vital Signs Blood Pressure: 101/62 Pulse: 74 NST Information Date on Monitor: 07/16/24 Time on Monitor: 21:02 Date off Monitor: 07/16/24 Time off Monitor: 21:28 Total Time on Monitor: 26 NST Interventions: None NST Evaluation Patient States Movement: Present FHR Baseline: 135 Variability: Moderate 6-25 bpm Accelerations: 15x15 Decelerations: None NST Results: Reactive Note Ultrasound Done: N/A. NST Note Note: Karoline presents for NST due to feeling bearing down pressure when having isabell mckeon contraction since yesterday. Denies LOF or vaginal bleeding. States she does not think she is in labor but her sister in law thought she should come. Baby has been active. SSE cervix thick and closed with scant white discharge that appears physiologic. Gentle digital exam closed, 30% VTX -2. Patient is reassured. NST is reactive and reassuring. discharged to home in satisfactory condition. GBS done as precaution. NST Reviewed and Verified by: Suma Bhandari
[2024-07-16 21:36] VITALS: BP 101/62; PULSE 74
== END 2024-07-16 21:35 | disposition home health service (06) ==
LOC: BCD 21:04 → OBS 21:05
PROVIDERS: PCP Family Medicine; Visit Provider Advanced Practice Midwife
DX: O47.03 False labor before 37 completed weeks of gestation, third trimester (principal); Z3A.33 33 weeks gestation of pregnancy
CPT/HCPCS: 59025; 87081

== ENCOUNTER 2024-08-07 11:33 | Outpatient (REF) | payer MEDICAID, SELFPAY | END 2024-08-07 11:34 | disposition home or self-care (01) | LOC: LBN 11:33 | PROVIDERS: PCP Family Medicine; Visit Provider Advanced Practice Midwife | DX: Z34.83 Encounter for supervision of other normal pregnancy, third trimester (principal); Z3A.36 36 weeks gestation of pregnancy | CPT/HCPCS: 87081 ==

== ENCOUNTER 2024-08-24 08:41 | Inpatient (IN) | payer MEDICAID, SELFPAY ==
[2024-08-24] VITALS (45 sets, daily range): BP systolic 91–117; BP diastolic 58–76; PULSE 63–113; RESP 16–18; TEMP 36.6–36.9; O2SAT 97–100; BMI 26.6
--- NOTE | 2024-08-24 08:59 | HPE_ITS ---
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 No bleeding, no ROM.). FER Calculator Estimated Delivery Date Method Current WG Current Estimate 08/31/24 LMP (Certain) 39w 0d Other Estimates 09/02/24 Ultrasound #1 38w 5d History of Present Expected Delivery Route/Plan - CNM FOB/ - Edmar Aggarwal (has 14 yo daughter from previous relationship) BB yes to circ, Elfego Rubella non-immune, offer MMR Desires either an epidural or intrathecal GBS negative @ 33 wks & 36 wks Specific Issues/Plan 1. Close pregnancies, 6 months at conception 2. Oldest child w/ADHD, ODD, FER, language problems, recent DCF custody- he is returning home in May 2024 3. cfDNA: low risk male, previously known CF and SMA neg 4. Offered Level 2 US MFM/Level II- declined. 4a. Choroid plexus cyst 5mm @ 19 wks, likely nml variant with low risk cfDNA [place] [facility] [place] 4b Karoline declines level 2 US, 32 week growth US-71%ile, HERMELINDO 13.7. No CP cyst 5. 5 P's screening is negative 6. Smoking tobacco- 1/2 PPD has cut down to 4-6/ day 7. Heart murmur -and palpitations- neg cardiac workup previously - referred to PCP if they persist, Dr. Miller 8. Covid infection at 27 weeks, using inhalers 9. Glucola @ 28 wks 161, 3 hr GTT nml x4 Assessment: History Reviewed & Current Review of Systems Narrative: ROS completed and noncontributory other than HPI PFSH All Active Problems (Updated 08/24/24 @ 09:05 by Amanda Resendiz) Normal labor (Acute) Mild persistent asthma (Acute) Nicotine dependence (Acute) quit smoking cigarettes around a year ago; patient vapes. 04/12 Smoking currently Choroid plexus cyst of fetus in gonzalez (Acute) Rubella non-immune status, antepartum (Acute) (Acute) Seasonal allergies (Acute) Depressive disorder (Acute) Migraine without aura (Acute) Heart murmur (Acute) Medical History (Updated 08/24/24 @ 09:05 by Amanda Resendiz) Vaginal itching Elevated glucose Carpal tunnel syndrome of left wrist Palpitations Anesthesia of skin Disorder of upper respiratory system Allergic rhinitis Lesion of ulnar nerve Refractory migraine without aura Attention deficit hyperactivity disorder (ADHD) Surgical History History of carpal tunnel surgery of left wrist History of ear surgery tubes History of dilatation and curettage Family History Son Bipolar disease, chronic Mother Palpitations Maternal Grandmother Palpitations Father Heart disease 2 stinints placed, [place] Maternal Aunt Heart disease triple bypass Palpitations Paternal Grandmother Thyroid disease Maternal Grandmother Thyroid disease Social History Smoking/Tobacco Use Status: Former Tobacco Use Quit Date: 08/13/17 Smoking risk assessment performed?: Yes Alcohol Intake: current Substance use type: does not use Housing: house Number of Children: 1 Seatbelt use: always Do you feel safe at home: Yes Do you feel safe in your relationship?: Yes History History 6 Para 3 Hx # Term Pregnancies 3 Multiple births 0 Hx # Pregnancies 0 Ectopic pregnancies 0 AB induced 0 Hx Number of Living Children 3 AB spontaneous 2 Past Pregnancies Del. Date GA/Weeks # Preg Succ Route Wgt Sex Labor Lgth Anesth esia Location [facility] 07/07/08 7 No No 07/21/10 40 No Yes vaginal 7 lb 15 oz Male 13 hrs regional [facility] [place] [facility] 12/17/19 38 No Yes vaginal 7 lb 6 oz Female 13 hours regional Suma Echavarria CNM 04/28/23 39 No Yes vaginal 7 lb 9 oz Female 3 hrs Cherie demarcus Echavarria CNM 10/04/23 8 No No Delivery Date: 07/07/08 Last Updated by: Suma Bhandari CNM No complications Delivery Date: 07/21/10 Last Updated by: Amanda Resendiz DV early preg, pyelo then PTL @ 6 months, cord around neck x2 & decels; Deion Delivery Date: 12/17/19 Last Updated by: Suma Echavarria CNM Sonia Delivery Date: 04/28/23 Last Updated by: Amanda Resendiz rapid labor, Cecelia Meds Allergies and Home Medications Allergies Allergy/AdvReac Type Severity Reaction Status Date / Time nirmatrelvir (From Paxlovid Allergy Severe Wheezing Verified 08/23/24 12:57 (EUA)) ritonavir (From Paxlovid Allergy Severe Wheezing Verified 08/23/24 12:57 (EUA)) nickel Allergy Mild Rash Verified 08/23/24 12:57 clindamycin Allergy breathing Verified 08/23/24 12:57 issues morphine Allergy rash Verified 08/23/24 12:57 cyclobenzaprine (From AdvReac heart Verified 08/23/24 12:57 Flexeril) racing Home Medications ?Medication ?Instructions ?Recorded ?Confirmed ?Type fluticasone propionate 50 1 spray intranasal DAILY 05/17/19 08/23/24 History mcg/actuation nasal spray,suspension (Flonase Allergy Relief) magnesium oxide 400 mg (241.3 mg 400 mg PO BID 02/04/23 08/23/24 History magnesium) tablet vits no.126-ferrous fum 2 tab PO DAILY 12/31/23 08/23/24 History 28 mg iron-folic acid 800 mcg tablet (Classic ) albuterol sulfate 90 mcg/actuation 2 puff inhalation .Q4-6hours PRN 02/04/24 08/23/24 Rx aerosol inhaler (ProAir HFA) shortness of breath or wheezing #8.5 grams potassium citrate 99 mg capsule 99 mg PO DAILY PRN 04/12/24 08/23/24 History Exam Physical Exam Vital signs: Pulse BP 113 H 91/65 L 08/24/24 08:34 08/24/24 08:34 Vital Signs Reviewed: Yes Constitutional Constitutional: mild distress, average body habitus and cooperative Detailed Labor and Delivery Exam Dilation: 6 Effacement (%): 50 station: -3 Cervix position: mid Consistency: soft ELIAS Score(Cervical Ripeness Score): 7 Amniotic Membrane Status: Intact Contraction Frequency(min): q2-3 Contraction Intensity: Mild/Moderate Fetus A Heart Rate Baseline: 135 Monitor Accelerations: 15 X 15 Monitor Decelerations: None Variability: Moderate (6-25 BPM) Categories: Category I Est. Weight: 6 lb 9.822 oz Est. Weight: 3000 gms HEENT Exam HEENT Exam: Normal Neck Exam Neck Exam: Normal Chest/Brest/Axilla Exam Chest Exam: Normal Breast Exam Breast Exam: Not Done Respiratory Exam Respiratory Exam: Normal Cardiovascular Exam Cardiovascular Exam: Normal Abdominal Exam Abdominal Exam: Normal (Gravid, soft, nontender) Rectal Exam Rectal Exam: Normal Exam Exam: Normal Extremities Exam Extremities Exam: Normal Back/Spine/Pelvis Exam Back Exam: Normal Pelvis Adequate: Yes (proven to ) Skin Exam Skin Exam: Normal Neurological Exam Neurological Exam: Normal Psychiatric Exam Psychiatric Exam: Normal Results Results Group Beta Strep: Negative Blood Type: AB+ Rubella Status: Nonimmune Varicella Immunity: Immune Risk Assessment Risk for Shoulder Dystocia Historical/Initial OB: NEGATIVE FOR: Pelvic Abnormality, Pre- BMI>30, Previous Shoulder Dystocia or Previous Macrosomia 36 Weeks: NEGATIVE FOR: Current Gestational DM, EFW>4500gms or Maternal Weight Gain>40lbs Increased Risk?: No Date/Initial: 02/04/24 Delivery Plan @ 36wks: Delivery Plan @ 40 wks: NVD Risk for Pre-Eclampsia Date Initiated/Initials: 02/04/24 Yes, if one or more: NEGATIVE FOR: Hx Pre-E/Gest HTN, Chronic HTN, Multiple Gestation, Pre-gestational DM, Renal Disease, Systemic Lupus or APA Syndrome Yes, if 2 or more: POSITIVE FOR: Age>= 35 yrs; NEGATIVE FOR: Nulliparity, >10yr btwn pregnancies, BMI>30, ethinicty, Mother/Sister w/ Pre-E or Previous IUGR Risk for Post- Hemorrhage Initial: NEGATIVE FOR: Multiple Gestation, Previous PPH, Known Clotting Deficiency, Grand Multiparity or Anticoagulation 36 Weeks: NEGATIVE FOR: Anemia, hgb<10, Low platelets(thrombocytopenia), Gestational HTN or Pre-E, Polyhydraminios or EFW>4500gms At Risk?: No Counseled re: Active Management: Yes Risks Reviewed Risks Reviewed Upon Admission: Yes
[2024-08-24] MEDS: FentaNYL/ROPIvacaine 2 mcg/ml and 0.1% 200 ML CADD Cassette EP (09:30)
[2024-08-24 09:32] LABS: HCT 33.1 % (36.0-46.0); HGB 10.9 g/dL (11.2-15.7); MCH 29.5 pg (27.0-33.0); MCHC 32.9 % (32.0-36.0); MCV 90 fL (80-95); MPV 10.2 fL (8.0-11.0); Platelet Count 350 10^3/uL (130-400); RBC 3.69 10^6/uL (3.93-5.22); RDW 13.3 % (11.7-14.6); RDW-SD 43.3 fL; WBC 14.75 10^3/uL (4.4-10.8)
--- NOTE | 2024-08-24 09:47 | ANES.PREOP_ITS ---
General Info Date of Service Date Performed: 08/24/24 Height: 5 ft 2.5 in Weight: 67.132 kg Body Mass Index (BMI): 26.6 Meds Allergies and Home Medications Allergies Allergy/AdvReac Type Severity Reaction Status Date / Time nirmatrelvir (From Paxlovid Allergy Severe Wheezing Verified 08/23/24 12:57 (EUA)) ritonavir (From Paxlovid Allergy Severe Wheezing Verified 08/23/24 12:57 (EUA)) nickel Allergy Mild Rash Verified 08/23/24 12:57 clindamycin Allergy breathing Verified 08/23/24 12:57 issues morphine Allergy rash Verified 08/23/24 12:57 cyclobenzaprine (From AdvReac heart Verified 08/23/24 12:57 Flexeril) racing Home Medication ?Medication ?Instructions ?Recorded fluticasone propionate 50 1 spray intranasal DAILY 05/17/19 mcg/actuation nasal spray,suspension (Flonase Allergy Relief) magnesium oxide 400 mg (241.3 mg 400 mg PO BID 02/04/23 magnesium) tablet vits no.126-ferrous fum 2 tab PO DAILY 12/31/23 28 mg iron-folic acid 800 mcg tablet (Classic ) albuterol sulfate 90 mcg/actuation 2 puff inhalation .Q4-6hours PRN 02/04/24 aerosol inhaler (ProAir HFA) shortness of breath or wheezing #8.5 grams potassium citrate 99 mg capsule 99 mg PO DAILY PRN 04/12/24 Current Visit Medications: Current Medications Generic Name Dose Route Start Last Admin Trade Name Freq PRN Reason Stop Dose Admin IV Miscellaneous Supplies 1 each 08/24/24 08:45 Iv Access IV DIRECTED GERA Sodium Chloride 0 ml 08/24/24 08:41 Normal Saline Flush 10 Ml Syr IVP PRN PRN Sodium Chloride 0 ml 08/24/24 20:00 Normal Saline Flush 10 Ml Syr IVP BID GERA Sodium Chloride 0 ml 08/24/24 08:41 Normal Saline 10 Ml Vial IJ DIRECTED PRN PFSH Active Problems Active Problems: Problem Status Onset Code Normal labor Acute O80, Z37.9 Mild persistent asthma Acute J45.30 Nicotine dependence Acute F17.200 Choroid plexus cyst of fetus in gonzalez Acute O35.03X0 Rubella non-immune status, antepartum Acute O09.899, Z28.39 Acute Z34.90 Seasonal allergies Acute J30.2 Depressive disorder Acute F32.9 Migraine without aura Acute G43.009 Heart murmur Acute R01.1 Medical History Medical History (Updated 08/24/24 @ 09:05 by Amanda Resendiz) Vaginal itching Elevated glucose Carpal tunnel syndrome of left wrist Palpitations Anesthesia of skin Disorder of upper respiratory system Allergic rhinitis Lesion of ulnar nerve Refractory migraine without aura Attention deficit hyperactivity disorder (ADHD) Surgical History Surgical History History of carpal tunnel surgery of left wrist History of ear surgery tubes History of dilatation and curettage Tobacco Smoking/Tobacco Use Status: Current every day Passive smoking exposure: No Alcohol Alcohol Intake: never Substance Use Substance use: Never Substance use type: does not use Prental History History 2 6 Para 3 Hx # Term Pregnancies 3 Multiple births 0 Hx # Pregnancies 0 Ectopic pregnancies 0 AB induced 0 Hx Number of Living Children 3 AB spontaneous 2 Past Pregnancies Del. Date GA/Weeks # Preg Succ Route Wgt Sex Labor Lgth Anesth esia Location [facility] 07/07/08 7 No No 07/21/10 40 No Yes vaginal 3600.389 g Male [address] [facility] 12/17/19 38 No Yes vaginal 3345.244 g Female 13 hours regional Suma Echavarria CNM 04/28/23 39 No Yes vaginal 3430.292 g Female 3 hrs Vivian Echavarria CNM 10/04/23 8 No No Delivery Date: 07/07/08 Last Updated by: Suma Bhandari CNM No complications Delivery Date: 07/21/10 Last Updated by: Amanda Resendiz DV early preg, pyelo then PTL @ 6 months, cord around neck x2 & decels; Deion Delivery Date: 12/17/19 Last Updated by: Suma Echavarria CNM Sonia Delivery Date: 04/28/23 Last Updated by: Amanda Resendiz rapid labor, Cecelia Vital Signs and Lab Results Vital Signs Most Recent Vital Signs in EMR: Most Recent Vital Signs Temp Pulse Resp BP Pulse Ox 36.9 C 85 17 98/64 L 100 08/24/24 09:30 08/24/24 09:46 08/24/24 09:30 08/24/24 09:46 08/24/24 09:30 Lab Results 08/24/24 09:20 Blood Type / Crossmatch: 2 No Data to Display Complete Blood Count: 2 White Blood Count 14.75 10^3/uL (4.4-10.8) H 08/24/24 09:20 Red Blood Count 3.69 10^6/uL (3.93-5.22) L 08/24/24 09:20 Hemoglobin 10.9 g/dL (11.2-15.7) L 08/24/24 09:20 Hematocrit 33.1 % (36.0-46.0) L 08/24/24 09:20 Platelet Count 350 10^3/uL (130-400) 08/24/24 09:20 Complete Metabolic Panel: 2 No Data to Display Liver Function Panel: 2 No Data to Display Coagulation Panel: 2 No Data to Display Cardiac Panel: 2 No Data to Display Arterial Blood Gas: 2 No Data to Display Venous Blood Gas: 2 No Data to Display Pancreas Panel: 2 No Data to Display Thyroid Panel: 2 No Data to Display Infectious Disease: 2 No Data to Display Blood Cultures: 2 No Data to Display Toxicology Panel: 2 No Data to Display Panel: 2 No Data to Display Imaging and Studies Imaging and Studies Study information below may be from another EMR and interpreted by another provider. Please see original notes in EMR for more complete details. Echocardiogram Summary: 06/22/2019: Patient Name: TREE MOISE Unit #: [id number] Loc: DI Ordering Provider: Ana Resendiz Status: REG CLI Primary Care Provider: Andriy Menendez Date of Exam: 06/22/19 Sex: F : 1985 Age: 33 Exam(s) a US:US echocardiogram *[facility]* *[facility]* [address] [place] [address] Date of study: 06/22/2019 Transthoracic Echocardiography M-mode, complete 2D, complete spectral Doppler, and color Doppler *STUDY CONCLUSIONS* Summary: 1. Left ventricle: The cavity size was normal. Wall thickness was normal. Systolic function was normal. The estimated ejection fraction was 55-60%. Wall motion was normal; there were no regional wall motion abnormalities. 2. Right ventricle: The cavity size was normal. Systolic function was normal. 3. Inferior vena cava: The vessel was patent and normal in size. The respirophasic diameter changes were blunted (less than 50%). Anesthesia Assessment and Plan Anesthesia History Personal History: No History of Anesthesia Complications Family History: No Family History of Anesthesia Complications Exercise Tolerance Exercise Tolerance: Metabolic Equivalents>4 Pertinent Negatives Pertinent Negatives: No Major Cardiovascular Symptoms or Complaints and No Major Pulmonary Symptoms or Complaints Cardiac & Pulmonary Exam Cardiac Exam: Normal S1/S2 Heart Sounds Pulmonary Exam: Clear Bilateral Breath Sounds Implantable Cardiac Device Does patient have a Pacemaker or an ICD?: No Airway Exam Known Difficult Airway: No Mallampati Class: 2 Mouth Opening: Normal (> 3cm) Thyromental Distance: Less than 3 cm Neck Range of Motion: Full ROM Neck Circumference: Normal Teeth Condition: Normal Dentition ASA Classification ASA Score: ASA 2 Emergency Case?: No NPO Status NPO Status: NPO Clears >2 hours, Solids >8 hours Status Status: Confirmed Anesthesia Plan Resuscitation Status: Full Code Anesthesia Technique: Labor Epidural Airway Planned: Natural Airway Pain Management: Epidural Monitors Used: Standard Monitors
[2024-08-24] MEDS: Lactated Ringers 500 ML IV (09:50)
--- NOTE | 2024-08-24 10:44 | W.ANESNEU ---
Epidural/Spinal Catheter Date Performed: 08/24/24 Procedure Start: 10:19 Procedure Stop: 10:36 Requesting Provider: Amanda Resendiz Procedure Location: Obstetrics Reason Performed: Labor Epidural Standard Monitors Applied: Blood Pressure, SpO2 and See EMR for corresponding vital signs Patient Position: Sitting Sedation Given (Indicate Dose Given): No Sedation given Patient Mental Status: Awake Sterility: Hand Hygiene, Surgical Cap, Surgical Mask, Sterile Gloves, Sterile Drape/Sheet and Chlorhexidine Procedure Location: L3-L4 Interspace Epidural Needle: Tuohy 18 Gauge Needle Length: 4 Inch Needle Approach: Midline Epidural Procedure: Skin Prepped, Sterile Drape Placed, 1% Lidocaine to skin and subcutaneous tissue with 25G needle, Tuohy Needle placed, CLAUDETTE to Saline Used, Epidural Catheter Placed, Negative Heme, Negative CSF Flow and Tuohy Needle Removed Catheter Placed?: Catheter Placed Test Dose (Indicate Dose Given): 3ml 1.5% Lidocaine with 1:200K Epinephrine Given and Negative Test Dose Loss of Resistance Depth (cm): 6 Catheter depth at skin (cm): 13 Dressing: Sorbaview Dressing Placed, Mastisol Used and Dressing reinforced with Tape Epidural Provider Bolus (Indicate Dose Given): None Given Additives (Indicate Dose Given ): None Infusion Medication: Medication Infusion Began Medication Infusion: Ropivacaine 0.1% with Fentanyl 2mcg/ml Maintenance Infusion Rate (ml/hour): 10 PCEA Bolus Dose (ml): 5 Block Level: N/A Paresthesia: None Ultrasound: Not Used Number of Attempts (See previous attempts in note section): 1 Procedure Tolerated: No Complications and Patient tolerated well Procedure Outcome: Successful Procedure Comment:: elected to not bolus dose patient r/t patient with adequate comfort at time of placement. PCEA education completed. Plan to reassess patient condition Performed By: Edouard Chirinos Supervised By: Mili Marquez
--- NOTE | 2024-08-24 14:02 | W.PM.OBNL1 ---
Date of service: 08/24/24 Time of Service: 14:02 Informed Consent Informed Consent: Augmentation of Labor, Regional Anesthesia and Risk,Benefits,Alternatives Discussed Pelvic Exam Dilation: 7 Effacement (%): 50 station: -2 Cervix Position: mid Consistency: soft Contractions Monitor Mode: External Contraction Frequency(min): 1-2 in 10 minutes Intensity: Mild/Moderate Fetus A Monitor: External (US) Heart Rate Baseline: 135 Variability: Moderate (6-25 BPM) Categories: Category I Decelerations: None Assessment and Plan Assessment and plan (1) Normal labor: Status: Acute Assessment and plan: A: Epidural anesthesia, multipara @ 7 cm; category 1 tracing P: Will add pitocin augmentation due to spaced out contractions Plan AROM when head better applied to cvx Anticipate Objective Abnormal lab results 08/24/24 Range/Units 09:20 WBC 14.75 H (4.4-10.8) 10^3/uL RBC 3.69 L (3.93-5.22) 10^6/uL Hgb 10.9 L (11.2-15.7) g/dL Hct 33.1 L (36.0-46.0) % Temp Pulse Resp BP Pulse Ox 97.9 F 85 17 96/59 L 98 08/24/24 09:46 08/24/24 13:14 08/24/24 09:46 08/24/24 13:14 08/24/24 10:35 Laboratory Results WBC 14.75 10^3/uL (4.4-10.8) H 08/24/24 09:20 RBC 3.69 10^6/uL (3.93-5.22) L 08/24/24 09:20 Hgb 10.9 g/dL (11.2-15.7) L 08/24/24 09:20 Hct 33.1 % (36.0-46.0) L 08/24/24 09:20 MCV 90 fL (80-95) 08/24/24 09:20 MCH 29.5 pg (27.0-33.0) 08/24/24 09:20 MCHC 32.9 % (32.0-36.0) 08/24/24 09:20 RDW 13.3 % (11.7-14.6) 09/26/24 09:20 Plt Count 350 10^3/uL (130-400) 08/24/24 09:20 MPV 10.2 fL (8.0-11.0) 08/24/24 09:20 ABO/Rh AB Positive 08/24/24 09:20 Antibody Screen NEGATIVE 08/24/24 09:20 Vital Signs Reviewed: Yes Subjective Interval history since last seen: Very comfortable with epidural
[2024-08-24] MEDS: Lactated Ringers 1,000 ML 125 ML IV (14:09)
[2024-08-24] MEDS: Oxytocin/Normal Saline 30 UNIT/500 ML BAG 2 UNITS IV (14:52)
--- NOTE | 2024-08-24 18:37 | OBVDS_ITS ---
Date of service: 08/24/24 Time of Service: 18:37 OB Labor/ Delivery Information Baby A Delivery Delivery Method: Spontaneaous Presentation: Cephalic Cephalic Position: Vertex Vertex Position: Right Occipital Anterior Cord Description-Baby A: 3 Vessels, Nuchal Cord and Reduced Amniotic Fluid: Clear Estimated Blood Loss: 100 ml Delivery Outcome: Liveborn Transferred: Remains with Mother Note: Pitocin augmentation to 6 units/min and AROM @ 1530 for clear fluid, pt rested and progressed to full dilation with vtx @ +3, category 1 tracing, 2nd stage huddle completed, pt positioned with support-pillows for legs due to dense epidural, sullivan catheter removed by RN, pushing coached and effective over 10 minutes, over intact perineum accomplished of a vigorous male infant, nuchal cord x1 reduced over head, father supported baby through delivery and held the baby until mother was ready to have him placed on her chest. pitocin bolus begun, cord ceased pulsating and was clamped then cut by FOB at 5 minutes, cord blood collected and [place] placenta delivered intact with 3VC. Vulva and vagina inspected and found without laceration, fundus firm below umbilicus, minimal EBL, strong family bonding observed, apgars 9/9, weight 3660 gms. Providers Nurse Stripping Machine Operator: Amanda Resendiz Nurse: Juliet Schroeder Nurse: Tommie Roblero Labor/Delivery Information Number of Babies in Womb: 1 Steroids Given: None Reason Steroids Not Administered: N/A Group Beta Strep: Negative Antibiotics Administered: No Rubella Status: Nonimmune Blood Type: AB+ Varicella Immunity: Immune Shoulder Dystocia: No Stages of Labor Onset of Labor Date: 08/24/24 Onset of Labor Time: 03:00 Complete Dilatation Date: 08/24/24 Complete Dilatation Time: 18:05 Labor - Stage 1 Duration: 15 hours and 5 minutes ROM Baby A: 08/24/24 ROM Baby A: 15:22 Delivery Date-Baby A: 08/24/24 Delivery Time-Baby A: 18:16 Labor Stage 2 Duration: 11 minutes Placenta Delivery Date-Baby A: 08/24/24 Placenta Delivery Time-Baby A: 18:23 Labor-Stage 3 Duration: 7 minutes Total Length of Labor-Baby A: 15 hours and 16 minutes Placenta Status: Delivered Baby A Infant Gender: Male Gestational Status: Term (39-41.6 wks) Gestational Age in Weeks/Days: 39 Weeks and 0 Days weight: 8 lb 1.103 oz Weight Comment: 3660 gms Score-1 Minute Interval(Baby A) Heart Rate-1 minute: 100 BPM or Greater Respiratory Effort- 1 minute: Spontaneous/Strong Cry Muscle Tone-1 minute: Active Movement Reflex Response-1 minute: Prompt Response Color-1 minute: Bluish Hands or Feet Total Score-1 minute: 9 Score-5 Minute Interval(Baby A) Heart Rate- 5 minute: 100 BPM or Greater Respiratory Effort-5 minute: Spontaneous/Strong Cry Muscle Tone-5 minute: Active Movement Reflex Response-5 minute: Prompt Response Color-5 minute: Bluish Hands or Feet Total Score- 5 minute: 9
[2024-08-24] MEDS: Acetaminophen 325 MG TAB 650 MG PO (22:51)
[2024-08-24] MEDS: Ibuprofen 600 MG TAB PO (22:51)
--- NOTE | 2024-08-25 07:13 | W.PM.OBPNV1 ---
Date of service: 08/25/24 Time of Service: 07:13 Assessment and Plan Assessment and plan (1) Term delivered: Status: Acute Assessment and plan: A: PPD#1, nml recovery, off to a good start P: Offer MMR vaccine Plan discharge tomorrow Routine PP care and support Subjective Subjective Patient comments: No complaints, Pain well controlled, Tolerating diet and Flatus present Patient's Mood: happy [place] baby status: Doing well, Nursing well, Rooming in and Strong Bonding Observed [place] feeding status: Exclusively breast feeding Exam Physical Exam Vital signs: Temp Pulse Resp BP Pulse Ox 98.4 F 76 17 99/68 L 99 08/24/24 22:40 08/24/24 22:40 08/24/24 22:40 08/24/24 22:40 08/24/24 22:40 Vital Signs Reviewed: Yes Constitutional Constitutional: no acute distress and cooperative HEENT Exam HEENT Exam: Normal Neck Exam Neck Exam: Normal Breast Exam Bilateral: Breast Exam: Normal and Soft Nipple Exam: Normal and Uninjured Respiratory Exam Respiratory Exam: Normal Cardiovascular Exam Cardiovascular Exam: Normal Abdominal Exam Abdomen: Other (soft, nontender) Fundal Exam Fundus: Below Umbilicus and Firm Rectal Exam Rectal Exam: Normal Exam Perineum: Intact and Normal Extremities Exam Extremity Exam: Normal, Full ROM and Warm to Touch Back/Spine/Pelvis Exam Back Exam: Normal Skin Exam Skin Exam: Normal Neurological Exam Neurological Exam: Normal Psychiatric Exam Psychiatric Exam: Normal
[2024-08-25 08:00] VITALS: BP 100/66; PULSE 56; RESP 12; TEMP 36.4
--- NOTE | 2024-08-25 08:28 | W.ANESPOSTOP ---
Postoperative Evaluation Date, Time and Location Date Performed: 08/25/24 Time Performed: 08:28 Patient Location: Obstetrics Vital Signs Most Recent Imported Vital Signs: Most Recent Vital Signs Temp Pulse Resp BP Pulse Ox 36.9 C 76 17 99/68 L 99 08/24/24 22:40 08/24/24 22:40 08/24/24 22:40 08/24/24 22:40 08/24/24 22:40 Pain Score Most Recent Pain Score: Most Recent Pain Score Pain Level [Back] 0 08/24/24 17:34 Pain Level [Abdomen] 0 08/24/24 17:34 Pain Level 0 08/24/24 18:30 Assessment Mental Status: Awake (Alert & Oriented to Patient Baseline) Airway and Respiratory Function: Patent airway with normal (patient baseline) respiratory exam Cardiovascular Function: Hemodynamically Stable Hydration Status: Adequately Hydrated Nausea & Vomiting: No Nausea or Vomiting Pain: Pt. Denies Any Pain Peripheral Nerve Block: Patient did not receive a nerve block
[2024-08-25] MEDS: Ibuprofen 600 MG TAB PO ×3 (09:10→21:00)
[2024-08-25] MEDS: Acetaminophen 325 MG TAB 650 MG PO ×3 (09:11→21:00)
[2024-08-25 17:00] VITALS: BP 98/67; PULSE 77; RESP 16; TEMP 36.4; O2SAT 100
[2024-08-26] MEDS: Acetaminophen 325 MG TAB 650 MG PO ×2 (02:10→07:43)
[2024-08-26] MEDS: Ibuprofen 600 MG TAB PO ×2 (02:58→09:51)
[2024-08-26 07:35] VITALS: BP 99/70; PULSE 59; RESP 17; TEMP 36.4; O2SAT 100
--- NOTE | 2024-08-26 09:46 | DSE_ITS ---
Date of service: 08/26/24 Time of Service: 09:46 DS: Diagnosis Discharge Diagnosis (1) Term delivered: Status: Acute Asessment and Plan: Caring for baby independently. Pain is managed well with oral analgesics. Voiding without difficulty. and bottlefeeding due to sore nipples and a strong latch A - stable mother and baby , Post day 2 P - Discharge to home today. Routine post instructions. [facility] Discharge Plan Disposition Patient Disposition: Home Condition: Good Discharge Details Reason For Visit: Term Labor Admit Date/Time: 08/24/24 08:41 Admit Provider: Amanda Resendiz Attending Provider: Amanda Resendiz [facility]: Admitted in labor, epidural at pt's request, pitocin augmentation, , nml course, plan discharge on PPD#2 Home Meds and New Rx's Prescriptions: New fluoxetine [Prozac] 20 mg capsule 20 mg PO DAILY Qty: 30 8RF No Action fluticasone propionate [Flonase Allergy Relief] 50 mcg/actuation spray,suspension 1 spray KING DAILY magnesium oxide 400 mg (241.3 mg magnesium) tablet 400 mg PO BID Classic 28 mg iron- 800 mcg tablet 2 tab PO DAILY albuterol sulfate [ProAir HFA] 90 mcg/actuation HFA aerosol inhaler 2 puff IH .Q4-6hours PRN (Reason: shortness of breath or wheezing) Qty: 8.5 0RF potassium citrate 99 mg capsule 99 mg PO DAILY PRN Discharge Instructions Additional Instructions: Please keep 2 and 6 week appointments with your hr systems analyst, call for any and all concerns Stand Alone Forms: BC Instructions, BC Post Vaginal Deliver Activity:: Activity as Tolerated Equipment/Supplies:: No Equipment Needed Diet:: Normal Diet Discharge Orders Discharge Orders: Discharge Order (Routine); Ordered 08/26/24 Ordered By: Suma Echavarria OB:DS Summary Summary Vaginal Delivery Method: Spontaneaous Contraception Discussed Contraception Discussed: Yes Contraceptive Plan: IUD (paragard), Gender-Baby A: Male weight: 8 lb 1.103 oz Status at Discharge Functional status at discharge: independent ambulation Overall status at discharge: patient is back to baseline Mental Status: mental status grossly normal Speech and Movement: speech and movement normal Mood: congruent mood Affect: normal affect Quality:SDOH Health Related Social Needs: No Data to Display Exam Physical Exam Vital signs: Temp Pulse Resp BP Pulse Ox 97.5 F L 59 L 17 99/70 L 100 08/26/24 07:35 08/26/24 07:35 08/26/24 07:35 08/26/24 07:35 08/26/24 07:35 Vital Signs Reviewed: Yes Constitutional Constitutional: no acute distress HEENT Exam HEENT Exam: Normal Neck Exam Neck Exam: Normal Respiratory Exam Respiratory Exam: Normal Cardiovascular Exam Cardiovascular Exam: Normal Fundal Exam Fundus: Below Umbilicus and Firm Extremities Exam Extremity Exam: Normal Psychiatric Exam Psychiatric Exam: Normal (stress due to painful latch) PFSH All Active Problems (Updated 08/25/24 @ 07:15 by Amanda Resendiz) Term delivered (Acute) Mild persistent asthma (Acute) Nicotine dependence (Acute) quit smoking cigarettes around a year ago; patient vapes. 04/12 Smoking currently Rubella non-immune status, antepartum (Acute) Seasonal allergies (Acute) Depressive disorder (Acute) Migraine without aura (Acute) Heart murmur (Acute) Medical History (Updated 08/25/24 @ 07:15 by Amanda Resendiz) Choroid plexus cyst of fetus in [place] Normal labor Vaginal itching Elevated glucose Carpal tunnel syndrome of left wrist Palpitations Anesthesia of skin Disorder of upper respiratory system Allergic rhinitis Lesion of ulnar nerve Refractory migraine without aura Attention deficit hyperactivity disorder (ADHD) Surgical History History of carpal tunnel surgery of left wrist History of ear surgery tubes History of dilatation and curettage Family History Son Bipolar disease, chronic Mother Palpitations Maternal Grandmother Palpitations Father Heart disease 2 stinints placed, ID Maternal Aunt Heart disease triple bypass Palpitations Paternal Grandmother Thyroid disease Maternal Grandmother Thyroid disease Social History Smoking/Tobacco Use Status: Current every day Smoking risk assessment performed?: Yes Alcohol Intake: never Drug use: Never Substance use type: does not use Housing: house Number of Children: 1 Seatbelt use: always Do you feel safe at home: Yes Do you feel safe in your relationship?: Yes History History 6 Para 3 Hx # Term Pregnancies 3 Multiple births 0 Hx # Pregnancies 0 Ectopic pregnancies 0 AB induced 0 Hx Number of Living Children 3 AB spontaneous 2 Past Pregnancies Del. Date GA/Weeks # Preg Succ Route Wgt Sex Labor Lgth Anesth esia Location [facility] 07/07/08 7 No No 07/21/10 40 No Yes vaginal 7 lb 15 oz Male 13 hrs regional [facility] in [facility] 12/17/19 38 No Yes vaginal 7 lb 6 oz Female 13 hours regional Suma Echavarria CNM 04/28/23 39 No Yes vaginal 7 lb 9 oz Female 3 hrs Cherie Echavarria CNM 10/04/23 8 No No Delivery Date: 07/07/08 Last Updated by: Suma Bhandari CNM No complications Delivery Date: 07/21/10 Last Updated by: Amanda Resendiz DV early preg, pyelo then PTL @ 6 months, cord around neck x2 & decels; [place] Delivery Date: 12/17/19 Last Updated by: Suma Echavarria CNM S[place] Delivery Date: 04/28/23 Last Updated by: Amanda Resendiz rapid laborCecelia DS: Data Vitals/I&O Vitals and I&O: Vital Signs Temperature 97.5 F L 08/26/24 07:35 Temperature 98.2 F 08/24/24 08:29 Temperature Source Oral 08/26/24 07:35 Pulse 59 L 08/26/24 07:35 Pulse 113 08/24/24 08:29 Pulse Rhythm Regular 08/26/24 07:35 Respiratory Rate 17 08/26/24 07:35 Respiratory Depth Normal 08/26/24 07:35 Blood Pressure 99/70 L 08/26/24 07:35 Blood Pressure 91/65 08/24/24 08:29 Blood Pressure Mean 79 08/26/24 07:35 Pulse Oximetry 100 08/26/24 07:35 Oxygen Delivery Method Room Air 08/24/24 09:30 Oxygen Flow Rate 0 08/24/24 09:30 Pain Level 6 08/26/24 07:43 Intake & Output 08/25/24 08/25/24 08/26/24 11:59 23:59 11:59 Output Total 600 / 600 Balance -600 / -600 Output: Urine 600 / 600 Other: Urine Color Yellow Yellow
[2024-08-26] MEDS: FLUoxetine 20 MG CAP (09:51)
== END 2024-08-26 10:25 | disposition home or self-care (01) | DRG 807 ==
LOC: OBS 08:51
PROVIDERS: Admitting Provider Advanced Practice Midwife; PCP Family Medicine; Visit Provider Advanced Practice Midwife
DX: O99.334 Smoking (tobacco) complicating childbirth (principal); Z37.0 Single live birth; Z3A.39 39 weeks gestation of pregnancy; F17.210 Nicotine dependence, cigarettes, uncomplicated; O69.81X0 Labor and delivery complicated by cord around neck, without compression, not applicable or unspecified
CPT/HCPCS: 36415; 85027; 86850; 86900; 86901; 59025